=== PATIENT | female | born 1940 | race Caucasian/White ===

== ENCOUNTER 2017-06-10 11:55 | Observation (INO) | payer OTHER ==
[2017-06-10 11:57] VITALS: BP 209/96; PULSE 57; RESP 16; TEMP 98; O2SAT 95
--- NOTE | 2017-06-10 12:48 | PD ---
HPI Chief Complaint: Altered Mental Status Time Seen by Provider: 12:07 Travel History International Travel<30 days: No Contact w/Intl Traveler<30days: No Traveled to known affect area: No History of Present Illness HPI 76-year-old female complains of denies malaise and weakness and chest discomfort. Patient states that symptoms started 2 days ago. Patient states that the chest discomfort localized to left chest. Patient denies any pain radiation. Patient denies palpitation nausea diaphoresis. Family member states the patient has been confused and looking pale for the past 2 days. Patient was on Ativan 2 mg, 6-8 pills a day. Family members took away the Ativan is 2 days ago. Patient was given Ativan 2 mg this morning prior to arrival. Family members state that her mental status improving after that. Patient also has been taking tramadol for chronic pain. Patient has history of hypertension on lisinopril and also on 1 psychiatric medication which they do not know the name. Patient denies any alcohol use or illicit drug abuse. Patient denies any headache. Patient denies any visual change. Patient denies any coughing congestion shortness of breath. Patient denies abdominal pain. Patient denies any nausea vomiting diarrhea. Patient denies any fever chills. Family members state the patient is unable to ambulate the last 2 days. [facility] Social History Tobacco Use: No Allergies-Medications (Allergen,Severity, Reaction): Coded Allergies: No Known Allergies (Unverified , 06/10/17) Reported Meds & Prescriptions Reported Meds & Active Scripts Active Reported Escitalopram (Escitalopram Oxalate) 5 Mg Tab Unknown Dose PO DAILY Tramadol (Tramadol HCl) 50 Mg Tab Unknown Dose PO DIRECTED PRN Ativan (Lorazepam) 2 Mg Tab 2 Mg PO Q6H PRN Review of Systems General / Constitutional: No: Fever Eyes: No: Visual changes HENT: No: Headaches Cardiovascular: Positive: Chest Pain or Discomfort Respiratory: No: Shortness of Breath Gastrointestinal: No: Abdominal Pain Genitourinary: No: Dysuria Musculoskeletal: No: Pain Skin: No Rash Neurologic: No: Weakness Psychiatric: No: Depression Endocrine: No: Polydipsia Hematologic/Lymphatic: No: Easy Bruising Physical Exam Narrative GENERAL: Well-nourished, well-developed patient. SKIN: Focused skin assessment warm/dry. HEAD: Normocephalic. EYES: No scleral icterus. No injection or drainage. NECK: Supple, trachea midline. No JVD or lymphadenopathy. CARDIOVASCULAR: Regular rate and rhythm without murmurs, gallops, or rubs. RESPIRATORY: Breath sounds equal bilaterally. No accessory muscle use. GASTROINTESTINAL: Abdomen soft, non-tender, nondistended. MUSCULOSKELETAL: No cyanosis, or edema. BACK: Nontender without obvious deformity. No CVA tenderness. Neurologic exam: Patient is lethargic however answer questions appropriately. Patient moves all extremity well. No obvious focal neurological deficit. Patient however was a generalized weakness. Data Data Last Documented VS Vital Signs Date Time Temp Pulse Resp B/P (MAP) Pulse Ox O2 Delivery O2 Flow Rate FiO2 06/10/17 16:18 63 18 139/71 (93) 95 Room Air 06/10/17 11:57 98.0 Orders Orders Electrocardiogram (06/10/17 12:29) Complete Blood Count With Diff (06/10/17 12:29) Comprehensive Metabolic Panel (06/10/17 12:29) Creatine Kinase (Cpk) (06/10/17 12:29) Troponin I (06/10/17 12:29) B-Type Natriuretic Peptide (06/10/17 12:29) Prothrombin Time / Inr (Pt) (06/10/17 12:29) Act Partial Throm Time (Ptt) (06/10/17 12:29) Urinalysis - C+S If Indicated (06/10/17 12:29) Thyroid Stimulating Hormone (06/10/17 12:29) Chest, Single Ap (06/10/17 12:29) Iv Access Insert/Monitor (06/10/17 12:29) Ecg Monitoring (06/10/17 12:29) Oximetry (06/10/17 12:29) Drug Screen, Random Urine (06/10/17 12:49) Alcohol (Ethanol) (06/10/17 12:49) Salicylates (Aspirin) (06/10/17 12:49) Tylenol (Acetaminophen) (06/10/17 12:49) Sodium Chlor 0.9% 1000 Ml Inj (Ns 1000 M (06/10/17 13:00) Ct Brain W/O Iv Contrast(Rout) (06/10/17 ) CKMB (06/10/17 13:05) CKMB% (06/10/17 13:05) (Hub Use Only)Inp Phy Cons/Ref (06/10/17 ) Admit Order (Ed Use Only) (06/10/17 16:12) Labs Laboratory Tests Test 06/10/17 13:05 White Blood Count 8.3 TH/MM3 Red Blood Count 4.62 MIL/MM3 Hemoglobin 15.0 GM/DL Hematocrit 43.7 % Mean Corpuscular Volume 94.4 FL Mean Corpuscular Hemoglobin 32.4 PG Mean Corpuscular Hemoglobin Concent 34.4 % Red Cell Distribution Width 15.2 % Platelet Count 326 TH/MM3 Mean Platelet Volume 8.5 FL Neutrophils (%) (Auto) 82.2 % Lymphocytes (%) (Auto) 11.4 % Monocytes (%) (Auto) 5.9 % Eosinophils (%) (Auto) 0.1 % Basophils (%) (Auto) 0.4 % Neutrophils # (Auto) 6.8 TH/MM3 Lymphocytes # (Auto) 0.9 TH/MM3 Monocytes # (Auto) 0.5 TH/MM3 Eosinophils # (Auto) 0.0 TH/MM3 Basophils # (Auto) 0.0 TH/MM3 CBC Comment DIFF FINAL Differential Comment Prothrombin Time 10.0 SEC Prothromb Time International Ratio 1.0 RATIO Activated Partial Thromboplast Time 26.1 SEC Urine Color LIGHT-YELLOW Urine Turbidity CLEAR Urine pH 7.5 Urine Specific [place] 1.007 Urine Protein NEG mg/dL Urine Glucose (UA) NEG mg/dL Urine Ketones NEG mg/dL Urine Occult Blood NEG Urine Nitrite NEG Urine Bilirubin NEG Urine Urobilinogen LESS THAN 2.0 MG/DL Urine Leukocyte Esterase NEG Urine RBC LESS THAN 1 /hpf Urine WBC 1 /hpf Urine Squamous Epithelial Cells <1 /hpf Microscopic Urinalysis Comment CULT NOT INDICATED Blood Urea Nitrogen 8 MG/DL Creatinine 0.75 MG/DL Random Glucose 122 MG/DL Total Protein 8.2 GM/DL Albumin 4.5 GM/DL Calcium Level 9.6 MG/DL Alkaline Phosphatase 68 U/L Aspartate Amino Transf (AST/SGOT) 27 U/L Alanine Aminotransferase (ALT/SGPT) 23 U/L Total Bilirubin 0.4 MG/DL Sodium Level 137 MEQ/L Potassium Level 3.7 MEQ/L Chloride Level 98 MEQ/L Carbon Dioxide Level 27.8 MEQ/L Anion Gap 11 MEQ/L Estimat Glomerular Filtration Rate 75 ML/MIN Total Creatine Kinase 293 U/L Creatine Kinase MB 5.1 NG/ML Creatine Kinase MB % 1.7 % Troponin I LESS THAN 0.02 NG/ML B-Type Natriuretic Peptide 159 PG/ML Thyroid Stimulating Hormone 3rd Gen 0.227 uIU/ML Salicylates Level 3.0 MG/DL Urine Opiates Screen NEG Acetaminophen Level LESS THAN 2.0 MCG/ML Urine Barbiturates Screen NEG Urine Amphetamines Screen NEG Urine Benzodiazepines Screen NEG Urine Cocaine Screen NEG Urine Cannabinoids Screen POS Ethyl Alcohol Level LESS THAN 3 MG/DL MDM Medical Decision Making Medical Screen Exam Complete: Yes Emergency Medical Condition: Yes Interpretation(s) Last Impressions Chest X-Ray 06/10/17 1229 Signed Impressions: Service Date/Time: Saturday, June 10, 2017 12:37 - CONCLUSION: No acute disease. Marko Mccoy MD Head CT 06/10/17 0000 Signed Impressions: Service Date/Time: Saturday, June 10, 2017 13:34 - CONCLUSION: No acute disease. Marko Mccoy MD 1524 PM. CBC within normal limits. CMP within normal limits. Cardiac enzymes are normal. BNP 159. TSH 0.227. Urine drug screen positive for cannabis. UA is negative. Differential Diagnosis Differential diagnosis including side effect of withdrawal medication, dehydration, electrolyte imbalance, TIA, CVA, UTI, pneumonia, sepsis. Narrative Course 76-year-old female with altered mental status and lethargy. Patient just came off Ativan 2 days ago. Patient is taking tramadol for pain. Normal saline solution 125 cc an hour. Diagnosis Primary Impression: Altered mental status Qualified Codes: R41.0 - Disorientation, unspecified Additional Impression: Medication withdrawal Qualified Codes: F13.239 - Sedative, hypnotic or anxiolytic dependence with withdrawal, unspecified Admitting Information Admitting Physician Requests: Observation Jose Ramon Friend MD Jun 10, 2017 12:48
[2017-06-10 13:05] VITALS: PULSE 40; RESP 18; O2SAT 98
[2017-06-10 13:18] LABS: AUTOMATED NEUTROPHIL # 6.8 TH/MM3 (1.8-7.7); BASOPHIL % 0.4 % (0.0-2.0); EOSINOPHIL % 0.1 % (0.0-4.0); HEMATOCRIT 43.7 % (35.0-46.0); LYMPH % 11.4 % (9.0-44.0); LYMPHOCYTE # 0.9 TH/MM3 (1.0-4.8); MEAN CELL VOLUME 94.4 FL (80.0-100.0); MEAN CORPUSCULAR HEMOGLOBIN 32.4 PG (27.0-34.0); MEAN CORPUSCULAR HGB CONC 34.4 % (32.0-36.0); MEAN PLATELET VOLUME 8.5 FL (7.0-11.0); MONO % 5.9 % (0.0-8.0); MONOCYTE # 0.5 TH/MM3 (0-0.9); NEUT % 82.2 % (16.0-70.0); PLATELET COUNT 326 TH/MM3 (150-450); RED BLOOD COUNT 4.62 MIL/MM3 (4.00-5.30); RED CELL DISTRIBUTION WIDTH 15.2 % (11.6-17.2); WHITE BLOOD COUNT 8.3 TH/MM3 (4.0-11.0)
--- NOTE | 2017-06-10 13:24 | RADRPT ---
EXAM DATE/TIME: 06/10/2017 12:37 [facility] COMPARISON: No previous studies available for comparison. INDICATIONS : Chest Pain MEDICAL HISTORY : Unobtainable SURGICAL HISTORY : Unobtainable ENCOUNTER: Initial ACUITY: 1 day PAIN SCORE: Non-responsive. LOCATION: chest FINDINGS: Cardiomegaly. Clear lungs. Degenerative changes of the spine and scoliosis of the lumbar spine, conve x to the right. CONCLUSION: No acute disease. Marko Mccoy MD on June 10, 2017 at 13:20 Board Certified Radiologist. This report was verified electronically.
[2017-06-10] MEDS: SODIUM CHLOR 0.9% 1000 ML INJ 1,000 ML IV SCH ×2 (13:25→23:00)
[2017-06-10 13:29] LABS: BILIRUBIN, URINE NEG (NEG); BLOOD, URINE NEG (NEG); GLUCOSE,URINE NEG (NEG); KETONE, URINE NEG (NEG); NITRITE,URINE NEG (NEG); PH, URINE 7.5 (5.0-8.5); SQUAMOUS EPITHELIAL CELL URINE <1 /hpf (0-5); URINE COLOR LIGHT-YELLOW (YELLW/STRAW); URINE LEUKOCYTE ESTERASE NEG (NEG)
[2017-06-10 13:39] LABS: ALBUMIN 4.5 GM/DL (3.4-5.0); AST (GOT) 27 U/L (15-37); BICARBONATE 27.8 MEQ/L (21.0-32.0); BLOOD UREA NITROGEN 8 MG/DL (7-18); CALCIUM 9.6 MG/DL (8.5-10.1); CHLORIDE 98 MEQ/L (98-107); CREATININE 0.75 MG/DL (0.50-1.00); GLOMERULAR FILTRATION RATE 75 ML/MIN (>89); GLUCOSE,RANDOM 122 MG/DL (74-106); SODIUM (NA) 137 MEQ/L (136-145)
[2017-06-10 13:40] LABS: ALT (GPT) 23 U/L (10-53)
--- NOTE | 2017-06-10 13:48 | RADRPT ---
EXAM DATE/TIME: 06/10/2017 13:34 [facility] COMPARISON: No previous studies available for comparison. INDICATIONS : Lethargic for 2 days, altered mental status. RADIATION DOSE: 56.35 CTDIvol (mGy) MEDICAL HISTORY : Non-responsive. SURGICAL HISTORY : Non-responsive. ENCOUNTER: Initial ACUITY: 1 day PAIN SCALE: Non-responsive LOCATION: cranial TECHNIQUE: Multiple contiguous axial images were obtained of the head. Using automated exposure control and adj ustment of the mA and/or kV according to patient size, radiation dose was kept as low as reasonably a chievable to obtain optimal diagnostic quality images. DICOM format image data is available electro nically for review and comparison. FINDINGS: CEREBRUM: The ventricles are normal for age. No evidence of midline shift, mass lesion, hemorrhage or acute in farction. No extra-axial fluid collections are seen. POSTERIOR FOSSA: The cerebellum and brainstem are intact. The 4th ventricle is midline. The cerebellopontine angle i s unremarkable. EXTRACRANIAL: The visualized portion of the orbits is intact. SKULL: The calvaria is intact. No evidence of skull fracture. CONCLUSION: No acute disease. Marko Mccoy MD on June 10, 2017 at 13:44 Board Certified Radiologist. This report was verified electronically.
[2017-06-10 13:49] LABS: ALKALINE PHOSPHATASE 68 U/L (45-117); TOTAL BILIRUBIN ADULT 0.4 MG/DL (0.2-1.0); TOTAL PROTEIN 8.2 GM/DL (6.4-8.2); TROPONIN I LESS THAN 0.02 NG/ML (0.02-0.05)
[2017-06-10 13:53] VITALS: BP 137/73; PULSE 61; RESP 18; O2SAT 96
[2017-06-10] MEDS ORDERED: TRAM50TA PO (14:05)
[2017-06-10] MEDS ORDERED: LORA-475 PO (14:05)
[2017-06-10] MEDS ORDERED: ESCI5TAB PO (14:05)
[2017-06-10 15:29] LABS: ACETAMINOPHEN LESS THAN 2.0 MCG/ML (10.0-30.0)
[2017-06-10 16:18] VITALS: BP 139/71; PULSE 63; RESP 18; O2SAT 95
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
[2017-06-10] MEDS ORDERED: MAGNESIUM HYDROXIDE SUSP 30 ML CUP PO PRN (17:30)
[2017-06-10] MEDS ORDERED: SODIUM CHLORIDE 0.9% FLUSH 10 ML FLUSH IV FLUSH PRN (17:30)
[2017-06-10] MEDS ORDERED: FLUMAZENIL 0.5 MG/5 ML VIAL IV PUSH PRN (17:30)
[2017-06-10] MEDS ORDERED: LORazepam 2 MG TAB PO PRN (17:30)
[2017-06-10] MEDS ORDERED: NALOXONE HCL 0.4 MG/ML AMP IV PUSH PRN (17:30)
[2017-06-10] MEDS ORDERED: ACETAMINOPHEN 325 MG TAB PO PRN (17:30)
[2017-06-10] MEDS ORDERED: SENNOSIDES 8.6 MG TAB PO PRN (17:30)
[2017-06-10] MEDS ORDERED: LORazepam 2 MG/ML VIAL IV PUSH PRN ×3 (17:30)
[2017-06-10] MEDS ORDERED: BISACODYL 10 MG SUPP RECTAL PRN (17:30)
[2017-06-10] MEDS ORDERED: LACTULOSE SYRUP 20 GM/30 ML CUP PO PRN (17:30)
[2017-06-10] MEDS ORDERED: PILL SPLITTER OTHER PRN (18:15)
[2017-06-10] MEDS: SODIUM CHLORIDE 0.9% FLUSH 10 ML FLUSH IV FLUSH SCH (20:29)
[2017-06-10] MEDS: DOCUSATE SODIUM 50 MG/SENNA 8.6 MG TAB PO SCH (20:29)
[2017-06-10] MEDS: LORazepam 1 MG TAB PO PRN (20:32)
[2017-06-10] MEDS: ENOXAPARIN SODIUM 30 MG/0.3 ML SYRINGE SQ SCH (20:33)
[2017-06-10] MEDS: traMADol HCL 50 MG TAB PO PRN ×2 (20:47→22:00)
[2017-06-11] VITALS (7 sets, daily range): BP systolic 116–217; BP diastolic 70–99; PULSE 64–72; RESP 16–20; TEMP 97.8–98.3; O2SAT 93–97
[2017-06-11 00:36] LABS: FREE T3 2.63 PG/ML (2.18-3.98); FREE T4 1.08 NG/DL (0.76-1.46); TROPONIN I LESS THAN 0.02 NG/ML (0.02-0.05)
[2017-06-11] MEDS: LORazepam 1 MG TAB PO PRN ×2 (01:30→05:56)
[2017-06-11] MEDS ORDERED: cloNIDine HCL 0.1 MG TAB PO SCH (06:30)
[2017-06-11] MEDS: SODIUM CHLOR 0.9% 1000 ML INJ 1,000 ML IV SCH ×2 (09:00→19:06)
[2017-06-11] MEDS: DOCUSATE SODIUM 50 MG/SENNA 8.6 MG TAB PO SCH ×2 (09:00→21:06)
[2017-06-11] MEDS: SODIUM CHLORIDE 0.9% FLUSH 10 ML FLUSH IV FLUSH SCH ×2 (09:40→19:05)
[2017-06-11] MEDS: ESCITALOPRAM OXALATE 10 MG TAB PO SCH (09:40)
[2017-06-11] MEDS ORDERED: MULTIVITAMINS/MINERALS THERAPEUTIC TAB PO ONE (14:45)
[2017-06-11] MEDS ORDERED: cloNIDine HCL 0.1 MG TAB PO PRN (14:45)
--- NOTE | 2017-06-11 14:52 | HHI.PR ---
Subjective Remarks Follow up on patient with benzodiazepine withdrawal. Patient seen and examined. Patient has family members present at the bedside. Apparently, however patient was supplementing with her own Ativan that she was purchasing illegally. Patient has an extremely lengthy history of benzodiazepine use starting in her 20s. Patient tells me today that she has had some thoughts of suicide but she knows that it is not what God would want her to do. She does not have a plan. She denies taking excessive amount of benzodiazepines in an effort to kill herself. She is asking to see a clinical support specialist. She recently had her granddaughter and grandson move in with her for companionship at her request. She has 2 adopted children, a son who committed suicide about 9 years ago and a daughter who she is estranged from. Her second whom she was to for 6 years last year and she has recently found out that he has spent a great deal of her fpc money and she may not have enough money left to live. Additionally, she is in probate court with her husbands children. Family members also add that she takes tramadol all throughout the day as well as large amounts of Tylenol PM in an effort to get some sleep. Apparently, her urine drug she was positive for cannabis because her granddaughter gave her some marijuana pills to take for relaxation while she was trying to wean down off of the Ativan. Patient admits that she has been under a great deal of stress. She has lost weight and is not eating well. She is not able to sleep. Family's concern is patient has been getting progressively weaker and spending more time in bed. Objective Vitals Vital Signs Date Time Temp Pulse Resp B/P (MAP) Pulse Ox O2 Delivery O2 Flow Rate FiO2 06/11/17 12:47 98.3 71 18 139/81 (100) 96 06/11/17 09:07 98.2 72 16 120/70 (87) 96 06/11/17 07:26 175/79 (111) 06/11/17 05:49 64 18 217/99 (138) 96 06/11/17 01:27 98.2 69 18 116/73 (87) 95 06/10/17 16:18 63 18 139/71 (93) 95 Room Air I/O 06/10/17 06/10/17 06/10/17 06/11/17 06/11/17 06/11/17 07:00 15:00 23:00 07:00 15:00 23:00 Intake Total 220 ml Balance 220 ml Intake TPN/PPN 220 ml # Voids 1 1 Result Diagram: 06/10/17 1305 06/10/17 1305 Imaging Last Impressions Chest X-Ray 06/10/17 1229 Signed Impressions: Service Date/Time: Saturday, June 10, 2017 12:37 - CONCLUSION: No acute disease. Marko Mccoy MD Head CT 06/10/17 0000 Signed Impressions: Service Date/Time: Saturday, June 10, 2017 13:34 - CONCLUSION: No acute disease. Marko Mccoy MD Objective Remarks GENERAL: Thin, frail cachectic appearing female patient, INAD. Awake and alert. Family members at the bedside. HEAD: Atraumatic. Normocephalic. + Temporal wasting EYES: PERRL, full EOMs, no jaundice, nonicteric, pink conjunctivae ENT: Nose without bleeding, purulent drainage. Airway patent. MMM. NECK: Trachea midline CARDIOVASCULAR: Regular rate and rhythm without murmurs, gallops, or rubs. Positive tenderness, reproducible on palpation of the left inframammary area. RESPIRATORY: Nonlabored. Clear to auscultation with normal respiratory effort. Breath sounds equal bilaterally. GASTROINTESTINAL: Abdomen soft, normal bowel sounds, non-tender, nondistended. MUSCULOSKELETAL: Extremities without clubbing, cyanosis, or edema. Distal pulses intact, 2+ bilaterally. INTEGUMENTARY: Warm and dry, no rash of generalized distribution. NEUROLOGICAL: Awake, alert, oriented to self, place, month and year no obvious cranial nerve deficits. Moves all 4 extremities, muscle strength testing 5 over 5. Motor and sensory grossly within normal limits. Supple neck, no meningeal signs. No obvious tremors. PSYCHIATRIC: Depressed mood, flat affect. Judgment and insight questionable. Procedures None Medications and IVs Current Medications Medications (Trade) Dose Ordered Sig/Castillo Route Start Time Stop Time Status Last Admin Sodium Chloride 1,000 ml @ 100 mls/hr Q10H IV 06/10/17 13:00 06/10/17 13:25 (NS Flush) 2 ml UNSCH PRN IV FLUSH 06/10/17 17:30 (NS Flush) 2 ml BID IV FLUSH 06/10/17 21:00 06/11/17 09:40 (Tylenol) 650 mg Q4H PRN PO 06/10/17 17:30 (Lovenox Inj) 30 mg Q24H SQ 06/10/17 20:00 06/10/17 20:33 (Narcan Inj) 0.4 mg UNSCH PRN IV PUSH 06/10/17 17:30 (Janine-Colace) 1 tab BID PO 06/10/17 21:00 (Milk Of Magnesia Liq) 30 ml Q12H PRN PO 06/10/17 17:30 (Senokot) 17.2 mg Q12H PRN PO 06/10/17 17:30 (Dulcolax Supp) 10 mg DAILY PRN RECTAL 06/10/17 17:30 (Lactulose Liq) 30 ml DAILY PRN PO 06/10/17 17:30 (Lexapro) 5 mg DAILY PO 06/11/17 09:00 06/11/17 09:40 (Ultram) 50 mg Q8H PRN PO 06/10/17 17:30 06/10/17 22:00 (Romazicon Inj) 0.2 mg Q1M PRN IV PUSH 06/10/17 17:30 (Ativan) 1 mg Q4H PRN PO 06/10/17 17:30 06/11/17 05:56 (Ativan Inj) 1 mg Q4H PRN IV PUSH 06/10/17 17:30 (Ativan) 2 mg Q2H PRN PO 06/10/17 17:30 (Ativan Inj) 2 mg Q1H PRN IV PUSH 06/10/17 17:30 (Ativan Inj) 2 mg Q15M PRN IV PUSH 06/10/17 17:30 (Pill Splitter) 1 ea UNSCH PRN OTHER 06/10/17 18:15 A/P Assessment and Plan 76-year-old female was brought in by her family members because of altered mental status likely secondary to benzodiazepine withdrawal. Benzodiazepine withdrawal: Patient has been on benzodiazepines since her 20s. Admits to abuse of medication, obtaining benzodiazepines illegally and taking more of her prescribed Ativan, running out early UDS positive for cannabis, interestingly negative for benzodiazepines Discussed with patient and family why cannabis is a poor substitute for benzodiazepines, advised on cessation -Ativan 1mg po BID with plans to wean patient down -CIWA protocol -monitor for seizure activity -monitor on cardiac telemetry -neuro checks Suicidal thoughts: Patient admits that she has had several episodes of injuring herself but has not done so due to her quaker beliefs. She denies taking additional visit as a pains in an effort to hurt herself. She does not have a plan at this time. Depression Polysubstance abuse: Patient admits to taking excessive amounts of benzodiazepines, tramadol and Tylenol PM. Salicylate level WNL. -Consult Industrial Maintenance Repairer Helper at patients request. She is a very quaker person and her beliefs have kept her from harming herself. -Consult Psychiatry, appreciate assistance. -Continue on Lexapro Chest pain: chronic, patient states he has had for years following fall that resulted in multiple rib fractures Doubt ACS CXR shows no acute disease, images reviewed by me Troponins negative x 3 -monitor Elevated CK, mild -Continue to trend CK -IVF Hypertension, uncontrolled, suspect secondary to withdrawal BP 217/99 BP controlled now off of any antihypertensives -Patients family to bring in her lisinopril prescription to clarify dosing -Clonidine as needed with parameters -Continue to monitor BP and adjust treatment accordingly Poor po intake Malnutrition Physical deconditioning -Theragran-M multivitamin daily -Obtain vitamin D level -Consult dietitian -PT/OT eval/tx Hypokalemia Hypophosphatemia -po repletion ordered Chronic pain -continue on Tramadol prn DVT prophylaxis -Lovenox Discharge Planning Patient not ready for discharge. Discharge pending clinical improvement, psychiatry clearance. Alyssa Siddiqui Jun 11, 2017 14:52
[2017-06-11] MEDS ORDERED: LORazepam 1 MG TAB PO SCH (15:00)
[2017-06-11 15:15] LABS: BICARBONATE 26.9 MEQ/L (21.0-32.0); CREATININE 0.71 MG/DL (0.50-1.00)
[2017-06-11 16:16] LABS: MAGNESIUM 1.7 MG/DL (1.5-2.5); PHOSPHORUS 2.1 MG/DL (2.5-4.9)
[2017-06-11] MEDS ORDERED: POTASSIUM CHLORIDE 25 MEQ EFFERVESCENT TAB PO ONE (17:00)
[2017-06-11] MEDS ORDERED: MELATONIN 5 MG TAB PO PRN (17:45)
[2017-06-11] MEDS: ENOXAPARIN SODIUM 30 MG/0.3 ML SYRINGE SQ SCH (19:07)
--- NOTE | 2017-06-11 20:56 | EKG ---
Date Performed: 06/11/2017 Time Performed: 02:40:41 PTAGE: 76 years EKG: Sinus rhythm WITH MARKED SINUS ARRHYTHMIA POSSIBLE LEFT ATRIAL ENLARGEMENT BORDERLINE ECG PREVIOUS TRACING : 06/10/2017 18.09 Since the previous tracing, no significant change noted DOCTOR: Octavio Hidalgo Interpretating Date/Time 06/11/2017 20:56:18
[2017-06-11] MEDS: LORazepam 1 MG TAB PO SCH (21:06)
[2017-06-11] MEDS: traMADol HCL 50 MG TAB PO PRN (21:07)
[2017-06-11] MEDS: POTASSIUM PHOSPHATE/SODIUM PHOSPHATE 250 MG TAB PO SCH (21:08)
--- NOTE | 2017-06-11 21:14 | EKG ---
Date Performed: 06/10/2017 Time Performed: 18:09:05 PTAGE: 76 years EKG: Sinus rhythm WITH SINUS ARRHYTHMIA POSSIBLE LEFT ATRIAL ENLARGEMENT SEPTAL MYOCARDIAL INFARCTION ABNORMAL ECG PREVIOUS TRACING : 06/10/2017 12.59 Since the previous tracing, no significant change noted DOCTOR: Octavio Hidalgo Interpretating Date/Time 06/11/2017 21:12:47
--- NOTE | 2017-06-11 21:27 | EKG ---
Date Performed: 06/10/2017 Time Performed: 12:59:12 PTAGE: 76 years EKG: Sinus rhythm LEFT ATRIAL ENLARGEMENT SEPTAL MYOCARDIAL INFARCTION ABNORMAL ECG NO PREVIOUS TRACING DOCTOR: Octavio Hidalgo Interpretating Date/Time 06/11/2017 21:26:31
[2017-06-12 03:43] VITALS: BP 138/86; PULSE 61; RESP 18; TEMP 98.1; O2SAT 95
[2017-06-12] MEDS: POTASSIUM PHOSPHATE/SODIUM PHOSPHATE 250 MG TAB PO SCH (05:16)
[2017-06-12] MEDS: SODIUM CHLOR 0.9% 1000 ML INJ 1,000 ML IV SCH (05:17)
[2017-06-12] MEDS: traMADol HCL 50 MG TAB PO PRN (05:50)
[2017-06-12 07:03] VITALS: BP 127/85; PULSE 68; RESP 16; TEMP 98.2; O2SAT 95
[2017-06-12 07:45] LABS: BICARBONATE 25.1 MEQ/L (21.0-32.0); CALCIUM 8.4 MG/DL (8.5-10.1); CREATININE 0.58 MG/DL (0.50-1.00)
[2017-06-12] MEDS: ESCITALOPRAM OXALATE 10 MG TAB PO SCH (08:20)
[2017-06-12] MEDS: LORazepam 1 MG TAB PO SCH (08:21)
[2017-06-12] MEDS: SODIUM CHLORIDE 0.9% FLUSH 10 ML FLUSH IV FLUSH SCH (08:21)
[2017-06-12] MEDS ORDERED: MULTIVITAMINS/MINERALS THERAPEUTIC TAB PO SCH (09:00)
[2017-06-12] MEDS: DOCUSATE SODIUM 50 MG/SENNA 8.6 MG TAB PO SCH (09:00)
--- NOTE | 2017-06-12 09:26 | HHI.PR ---
Subjective Remarks Follow up for benzodiazepine withdrawal. Patient is resting in bed. She denies any chest pain, shortness of breath, fever or chills. She keeps mentioning about how she needs to be re-born and she also talks about . Patient has a long history of benzo abuse. Objective Vitals Vital Signs Date Time Temp Pulse Resp B/P (MAP) Pulse Ox O2 Delivery O2 Flow Rate FiO2 06/12/17 07:13 18 06/12/17 07:03 98.2 68 16 127/85 (99) 95 06/12/17 03:43 98.1 61 18 138/86 (103) 95 06/11/17 19:35 97.8 66 18 131/82 (98) 93 06/11/17 15:22 97.8 71 20 140/81 (100) 97 06/11/17 12:47 98.3 71 18 139/81 (100) 96 I/O 06/11/17 06/11/17 06/11/17 06/12/17 06/12/17 06/12/17 07:00 15:00 23:00 07:00 15:00 23:00 Intake Total 220 ml 240 ml 120 ml Balance 220 ml 240 ml 120 ml Intake TPN/PPN 220 ml 240 ml 120 ml Result Diagram: 06/10/17 1305 06/12/17 0530 Imaging Last Impressions Chest X-Ray 06/10/17 1229 Signed Impressions: Service Date/Time: Saturday, June 10, 2017 12:37 - CONCLUSION: No acute disease. Marko Mccoy MD Head CT 06/10/17 0000 Signed Impressions: Service Date/Time: Saturday, June 10, 2017 13:34 - CONCLUSION: No acute disease. Marko Mccoy MD Objective Remarks GENERAL: Alert, Oriented to person, place, month. Flat affect, talks about re- born and dying. SKIN: Warm and dry. HEAD: Normocephalic. EYES: No scleral icterus. No injection or drainage. NECK: Supple, trachea midline. No JVD or lymphadenopathy. CARDIOVASCULAR: Regular rate and rhythm without murmurs, gallops, or rubs. RESPIRATORY: Breath sounds equal bilaterally. No accessory muscle use. GASTROINTESTINAL: Abdomen soft, non-tender, nondistended. MUSCULOSKELETAL: No cyanosis, or edema. BACK: Nontender without obvious deformity. No CVA tenderness. Procedures None A/P Problem List: (1) Hypertension ICD Code: I10 - Essential (primary) hypertension (2) Suicidal behavior ICD Code: R46.89 - Other symptoms and signs involving appearance and behavior (3) Depression ICD Code: F32.9 - Major depressive disorder, single episode, unspecified (4) Benzodiazepine dependence ICD Code: F13.20 - Sedative, hypnotic or anxiolytic dependence, uncomplicated Assessment and Plan 76-year-old female was brought in by her family members because of altered mental status likely secondary to benzodiazepine withdrawal. Benzodiazepine withdrawal: Patient has been on benzodiazepines since her 20s. Admits to abuse of medication, obtaining benzodiazepines illegally and taking more of her prescribed Ativan, running out early UDS positive for cannabis, interestingly negative for benzodiazepines -Ativan 1mg po BID with plans to wean patient down -CIWA protocol -monitor for seizure activity -neuro checks Suicidal thoughts Depression -Patient admits that she has had several episodes of injuring herself but has not done so due to her tenriism beliefs. Polysubstance abuse -Patient admits to taking excessive amounts of benzodiazepines, tramadol and Tylenol PM. Salicylate level within normal levels. -Consult Starter Mechanic at patients request. She is a very tenriism person and her beliefs have kept her from harming herself. -Consult Psychiatry. -Continue on Lexapro Chest pain: chronic, patient states he has had for years following fall that resulted in multiple rib fractures CXR shows no acute disease, images reviewed by me Troponins negative x 3. - No further cardiac work up. Elevated CK, mild. Creatinine 0.58. No further work up with regards to elevated CK. Hypertension, uncontrolled, suspect secondary to withdrawal - BP Much improved. 127/85 on 06/12/2017. Malnutrition Physical deconditioning -Theragran-M multivitamin daily -Obtain vitamin D level -Consult dietitian -PT/OT eval/tx Hypokalemia Hypophosphatemia Hypomagnesemia -PO Potassium phosphate replacement. - Will provide 2 g of Mag sulfate IV. Mg was 1.7. Chronic pain -continue on Tramadol prn Full code. Lovenox. Isauro Mock DO June 12, 2017 9:26 am
[2017-06-12 10:36] VITALS: BP 129/83; PULSE 69; RESP 20; TEMP 98.7; O2SAT 92
[2017-06-12] MEDS: MAGNESIUM SULFATE 1 GM PREMIX 100 ML IV SCH ×2 (11:05→12:01)
[2017-06-13] MEDS ORDERED: LORA0.5T PO (19:55)
[2017-06-13] MEDS ORDERED: TRAZ100T10 PO (20:00)
[2017-06-13] MEDS ORDERED: LISI-515 PO (20:00)
[2017-06-13] MEDS ORDERED: ESCI10TA PO (20:01)
== END 2017-06-12 13:13 ==
LOC: NEPC 11:55 → NEDA 16:18 → NEPFCDU 19:02
PROVIDERS: ADMIT Hospitalist; ATTEND Hospitalist
DX: R41.82 Altered mental status, unspecified (principal); F13.239 Sedative, hypnotic or anxiolytic dependence with withdrawal, unspecified; R45.851 Suicidal ideations; E46 Unspecified protein-calorie malnutrition; E87.6 Hypokalemia; E83.39 Other disorders of phosphorus metabolism; E83.42 Hypomagnesemia; I49.9 Cardiac arrhythmia, unspecified; R94.31 Abnormal electrocardiogram [ECG] [EKG]; I11.9 Hypertensive heart disease without heart failure; G89.29 Other chronic pain; F32.9 Major depressive disorder, single episode, unspecified; F41.9 Anxiety disorder, unspecified; F17.210 Nicotine dependence, cigarettes, uncomplicated; M19.90 Unspecified osteoarthritis, unspecified site
CPT/HCPCS: 70450; 71045; 80048; 80053; 80307; 81001; 82306; 82550; 82552; 82607; 83735; 83880; 84100; 84439; 84443; 84481; 84484; 85025; 85610; 85730; 93005; 96361; 96365; 96372; 97162; 97167; 99285; G0378; G8987; G8988; J1650; J3475; J7030

== ENCOUNTER 2017-06-12 11:14 | Inpatient (IN) | payer OTHER, MEDICARE ==
[~2017-06-12 11:14] MED LIST: ESCI5TAB PO; LORA-475 PO; TRAM50TA PO
[2017-06-12] MEDS ORDERED: FLUMAZENIL 0.5 MG/5 ML VIAL IV PUSH PRN (12:00)
[2017-06-12] MEDS ORDERED: LORazepam 2 MG TAB PO PRN ×2 (12:00→15:15)
[2017-06-12] MEDS ORDERED: LORazepam 0.5 MG TAB PO PRN (12:00)
[2017-06-12] MEDS ORDERED: LORazepam 2 MG/ML VIAL IM PRN ×2 (12:00)
[2017-06-12] MEDS ORDERED: LORazepam 2 MG/ML VIAL IV PUSH PRN ×4 (12:00)
[2017-06-12] MEDS ORDERED: ALUMINUM/MAGNESIUM/SIMETH 30 ML CUP PO PRN (12:00)
[2017-06-12] MEDS ORDERED: LORazepam 1 MG TAB PO PRN (12:00)
[2017-06-12] MEDS ORDERED: MAGNESIUM HYDROXIDE SUSP 30 ML CUP PO PRN (12:00)
--- NOTE | 2017-06-12 12:31 | HHI.HP ---
Provisional Diagnosis Admission Date [place] I. 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 Deferred Certification of Person's Competence To Provide Express and Informed Consent I have personally examined Bailey Montesinos , a person being served at [facility] on, June 12, 2017 12:01. Express and informed consent means consent voluntarily given in writing, by a competent person, after sufficient explanation and disclosure of the subject matter involved to enable the person to make a knowing and willful decision without any element of force, fraud, deceit, duress, or other form of constraint or coercion. This person is 18 years of age or older, is not now known to be incompetent to consent to treatment with a guardian advocate, and does not have a health care surrogate or proxy currently making medical treatment decisions. I have found this person to be one of the following: [] Competent to provide express and informed consent, as defined above, for voluntary admission to this facility and is competent to provide express and informed consent for treatment. He/she has the consistent capacity to make well reasoned, willful, and knowing decisions concerning his or her medical or mental health treatment. The person fully and consistently understands the purpose of the admission for examination/placement and is fully capable of personally exercising all rights assured [place] [x] Incompetent to provide express and informed consent to voluntary admission, and this is incompetent to provide express and informed consent to treatment. The person must be transferred to involuntary status and a petition for a guardian advocate filed with the Circuit Court. [] Refusing to provide express and informed consent to voluntary admission but is competent to provide express and informed consent for treatment. The person must be discharged or transferred to involuntary status. Form shall be completed within 24 hours of a person's arrival at the receiving facility and filed in the clinical record of each person: 1. Admitted on a voluntary basis 2. Permitted to provide express and informed consent to his/her own treatment 3. Allowed to transfer from involuntary to voluntary status 4. Prior to permitting a person to consent to his or her own treatment after having been previously found incompetent to consent to treatment. History of Present Illness Capacity: Lacks Capacity HPI The patient 76-year-old woman, domiciled with granddaughter jeanne Burrows , , unemployed, supported by [employer] benefits, with psychiatric history of anxiety and depression, she denies previous psychiatric hospitalizations, denies previous suicidal attempts, medical history of arthritis presenting to the hospital after the family brought her because of Ativan withdrawal. Of note , patient has been on Ativan for 20 years, for the last few months, she has been taking Ativan 2 mg about 6-8 times a day. Her primary care physician tried to wean her off the Ativan but it was challenging. Because of increasing lethargy, family decided to help her with weaning her off from Ativan about 2 days ago. Her last usual dose of Ativan was 2 days ago, patient has been well until yesterday when she started having hallucinations, did not make any sense, nauseated, diaphoretic and anxious. Because of these symptoms, the family was alarmed and this morning, they gave her one 2 mg tablet and brought her to the hospital. Her mental status improved after getting a 2 mg Ativan but the family is concerned that she will withdrawal and she does not have any more medications. The patient's granddaughter and the patient would like to wean her off to the lowest dose possible. She is also on tramadol for chronic pain and lisinopril for hypertension. Presently, she denies any shortness of breath but she admits to being anxious. Psychiatric evaluation the patient is quietly confused, with some moments of lucidity, but mostly disorganized, disoriented. The patient reports good mood, she said that she has been missing her who several years ago, minutes later she reports that her was just here visiting her. The patient self-report to be very confused "do not believe anything I say, I do know what is going on with me". Patient thinks "I am in my apartment". She states we are in [birth year], 2009. The patient has a prominent confusion, blocking thought, speech delay and internal preoccupation. She has been endorsing visual hallucinations, she has been seeing people inside her room, talking to noexistent people. No agitation or aggressive behavior present. As per nurse in charge a primary doctor in the ER, the patient also has been stating in different locations that she wants to , but a my evaluation she denies this. Review of Systems Constitutional: DENIES: Diaphoretic episodes, Fatigue, Fever, Weight gain, Weight loss, Chills, Dizziness, Change in appetite, Night Sweats Eyes: DENIES: Blurred vision, Diplopia, Eye inflammation, Eye pain, Vision loss , Photosensitivity, Double Vision Ears, nose, mouth, throat: DENIES: Tinnitus, Hearing loss, Vertigo, Nasal discharge, Oral lesions, Throat pain, Hoarseness, Ear Pain, Running Nose, Epistaxis, Sinus Pain, Toothache, Odynophagia Respiratory: DENIES: Apneas, Cough, Snoring, Wheezing, Hemoptysis, Sputum production, Shortness of breath Cardiovascular: DENIES: Chest pain, Palpitations, Syncope, Dyspnea on Exertion , PND, Lower Extremity Edema, Orthopnea, Claudication Gastrointestinal: DENIES: Abdominal pain, Black stools, Bloody stools, Constipation, Diarrhea, Nausea, Vomiting, Difficulty Swallowing, Anorexia Genitourinary: DENIES: Abnormal vaginal bleeding, Dysmenorrhea, Dyspareunia, Sexual dysfunction, Urinary frequency, Urinary incontinence, Urgency, Hematuria , Dysuria, Nocturia, Vaginal discharge Integumentary: DENIES: Abnormal pigmentation, Pruritus, Rash, Nail changes, Breast masses, Breast skin changes, Nipple discharge Hematologic/lymphatic: DENIES: Bruising, Lymphadenopathy Immunologic/allergic: DENIES: Eczema, Urticaria Neurologic: DENIES: Abnormal gait, Headache, Localized weakness, Paresthesias, Seizures, Speech Problems, Tremor, Poor Balance Psychiatric: COMPLAINS OF: Anxiety, Hallucinations, Delusions, DENIES: Confusion, Mood changes, Depression, Agitation, Suicidal Ideation, Homicidal Ideation Past Family Social History Coded Allergies: No Known Allergies (Unverified , 06/10/17) Reported Medications Escitalopram (Escitalopram) 5 Mg Tab, PO DAILY, TAB 0 Refills 06/10/17 Tramadol (Tramadol) 50 Mg Tab, PO DIRECTED Y for PAIN, TAB 0 Refills 06/10/17 Lorazepam (Ativan) 2 Mg Tab, 2 MG PO Q6H Y for ANXIETY AND/OR AGITATION, TAB 0 Refills 06/10/17 Current Medications Medications (Trade) Dose Ordered Sig/Castillo Route Start Time Stop Time Status Last Admin (Ativan) 1 mg Q6H PRN PO 06/12/17 12:00 UNV (Ativan Inj) 1 mg Q6H PRN IM 06/12/17 12:00 UNV (Ativan) 0.5 mg Q12H PRN PO 06/12/17 12:00 UNV (Ativan Inj) 0.5 mg Q12H PRN IM 06/12/17 12:00 UNV (Tylenol) 650 mg Q4H PRN PO 06/12/17 12:00 UNV (Milk Of Magnesia Liq) 30 ml DAILY PRN PO 06/12/17 12:00 UNV (Mag-Al Plus Susp Liq) 30 ml Q6H PRN PO 06/12/17 12:00 UNV (Habitrol 21 Mg Patch.24 Hr) 1 patch DAILY T-DERMAL 06/12/17 12:00 UNV (Romazicon Inj) 0.2 mg Q1M PRN IV PUSH 06/12/17 12:00 UNV (Ativan) 1 mg Q4H PRN PO 06/12/17 12:00 UNV (Ativan Inj) 1 mg Q4H PRN IV PUSH 06/12/17 12:00 UNV (Ativan) 2 mg Q2H PRN PO 06/12/17 12:00 UNV (Ativan Inj) 2 mg Q2H PRN IV PUSH 06/12/17 12:00 UNV (Ativan Inj) 2 mg Q1H PRN IV PUSH 06/12/17 12:00 UNV (Ativan Inj) 2 mg Q15M PRN IV PUSH 06/12/17 12:00 UNV Mental Status Examination Appearance: Appropriate Consciousness: Alert Orientation: Person Motor Activity: Normal gait Speech: Unremarkable Language: Adequate Fund of Knowledge: Adequate Attention and Concentration: Adequate Memory: Unremarkable, Impaired Mood: Appropriate Affect: Appropriate Thought Process & Associations: Loose associations Thought Content: Bizarre thinking Hallucination Type: None, Visual Delusion Type: None Suicidal Ideation: Yes Suicidal Plan: No Suicidal Intention: No Homicidal Ideation: No Homicidal Plan: No Homicidal Intention: No Insight: Poor Judgment: Poor Assessment & Plan Problem List: (1) Unspecified psychosis ICD Codes: F29 - Unspecified psychosis not due to a substance or known physiological condition Assessment & Plan: On psychiatric evaluation the patient seems to be quite confused, disorganized, with active visual hallucination which is most probably secondary to persistent psychosis related with benzodiazepine withdrawal. Patient has also expressed suicidal ideation in the context of confusion, but no intentions or plan. At this moment we do not have sufficient information about past psychiatric history of the patient, no collateral information is available at the moment. Patient is on the Bills act due to psychosis and suicidal ideation, now medically clear. Will admit in the [facility] unit for stabilization and safety. Will consult psychiatry for second opinion, medicine to continue investigating potential causes of confusion, also will consult neuro to rule out neurological causes of AMS. We will start a low dose of Seroquel, 12.5 mg twice daily. Will continue CIWA. Assessment & Plan Estimated LOS: days Minor Recinos MD June 12, 2017 12:31
[2017-06-12] MEDS: NICOTINE 21 MG/24 HR PATCH T-DERMAL SCH (14:00)
--- NOTE | 2017-06-12 14:34 | PD.CONS ---
History of Present Illness Service Neurology Consult Requested By psychiatry Reason for Consult hallucinations Primary Care Physician Unknown History of Present Illness 76 y/o female with hx of HTN and anxiety, admitted for new onset of hallucinations. Pt is unable to give history, history obtained from nurse and the chart. Reports she has been on Ativan since age 19 for anxiety and depression. She had been on Ativan 2mg and over the past few months had increased it to 6-8 times daily. She was working to wean off the Ativan with her PCP due to her overuse. Her last dose of Ativan had been 2 days ago. She began having hallucinations and increased confusion and anxiety yesterday and family gave her 1 dose of the medication at that time. When asked why she is here the pt states that "she has some fear but is a Mandaeism." Denies past hx of CVA, TIA, cardiovascular problems. (Kim Avila) Review of Systems Constitutional: Negative except HPI Eye: Negative Except HPI ENMT: Negative except HPI Respiratory: Negative except HPI Cardiovascular: Negative except HPI Gastrointestinal: Negative except HPI Nikolas/Lymph: Negative except HPI Musculoskeletal: Negative except HPI Neurologic: Confusion Psychiatric: Anxiety, Depression, Hallucinations All other ROS: ROS reviewed as documented in chart (Kim Avila) Past Family Social History Allergies: Coded Allergies: No Known Allergies (Unverified , 06/10/17) Past Medical History anxiety, depression, HTN Past Surgical History hysterectomy, plastic surgery Active Ordered Medications Current Medications Medications (Trade) Dose Ordered Sig/Castillo Route Start Time Stop Time Status Last Admin (Ativan) 0.5 mg Q12H PRN PO 06/12/17 12:00 (Ativan Inj) 0.5 mg Q12H PRN IM 06/12/17 12:00 (Tylenol) 650 mg Q4H PRN PO 06/12/17 12:00 (Milk Of Magnesia Liq) 30 ml DAILY PRN PO 06/12/17 12:00 (Mag-Al Plus Susp Liq) 30 ml Q6H PRN PO 06/12/17 12:00 (Habitrol 21 Mg Patch.24 Hr) 1 patch DAILY T-DERMAL 06/12/17 14:00 (Romazicon Inj) 0.2 mg Q1M PRN IV PUSH 06/12/17 12:00 (Ativan) 1 mg Q4H PRN PO 06/12/17 12:00 (Ativan Inj) 1 mg Q4H PRN IV PUSH 06/12/17 12:00 (Ativan) 2 mg Q2H PRN PO 06/12/17 12:00 (Ativan Inj) 2 mg Q2H PRN IV PUSH 06/12/17 12:00 (Ativan Inj) 2 mg Q1H PRN IV PUSH 06/12/17 12:00 (Ativan Inj) 2 mg Q15M PRN IV PUSH 06/12/17 12:00 Family History reports granddaughter had problems with substance abuse Social History alcohol use, marijuana use (Kim Avila) Exam General: No acute distress Eye: PERRL, EOMI Respiratory: Non-labored respirations Cardiology: Normal rate Psychiatric: Cooperative Exam Comments knows it is June but thinks year 2016, knows Toi is president, unsure why she is in the hospital. follows commands, moving extremities against gravity, reflexes 2+, f-n-f intact, no facial droop, no drift, tone normal, gait withheld , no tremor, eomi no nystagmus, no focal deficits (Kim Avila) Review/Management Diagnosis/Plan: (1) Altered mental status ICD Codes: R41.82 - Altered mental status, unspecified Status: Acute Plan: suspect encephalopathy- has metabolic abnormality vs benzo withdrawl electrolytes low- sodium, potassium, phos, chloride electrolyte replacement CT NAICP EEG ordered TSH low, T3, T4 wnl B12- 313, will check Folate would rec B12 1000mcg daily UA normal (2) Hypertension ICD Codes: I10 - Essential (primary) hypertension Plan: continue Lisinopril (3) Unspecified psychosis ICD Codes: F29 - Unspecified psychosis not due to a substance or known physiological condition Status: Acute (4) Depression ICD Codes: F32.9 - Major depressive disorder, single episode, unspecified Status: Chronic Plan: continue to work closely with psychiatry (Kim Avila) Diagnosis/Plan: (1) Altered mental status ICD Codes: R41.82 - Altered mental status, unspecified Status: Acute Plan: suspect encephalopathy- has metabolic abnormality vs benzo withdrawl electrolytes low- sodium, potassium, phos, chloride electrolyte replacement CT NAICP EEG ordered mri ordered TSH low, T3, T4 wnl B12- 313, will check Folate would rec B12 1000mcg daily UA normal d/w PA. seen and examined. agree with above. pt tells me she is in the psych [facility] because "she is afraid of dying and is depressed". denies any saucedo, focal weakness, vision loss. no fever. no elevation in wbc count. na normal on arrival , now low. defer to psych/medical for further eval. there is also concern for benzo withdrawal. she was calm and appropriate in her exam with me. current behavior/condition appears to be of primary psychiatric etiology. (Paul Rogers MD) Kim Avila June 12, 2017 14:34 Paul Rogers MD June 12, 2017 17:17
[2017-06-12] MEDS: LORazepam 1 MG TAB PO PRN (17:16)
[2017-06-12 18:01] VITALS: BP 148/91; PULSE 72; RESP 16; TEMP 98; O2SAT 93
[2017-06-13 06:12] VITALS: BP 153/75; PULSE 61; RESP 16; TEMP 98.1; O2SAT 96
[2017-06-13] MEDS: NICOTINE 21 MG/24 HR PATCH T-DERMAL SCH (09:00)
--- NOTE | 2017-06-13 09:39 | HHI.PR ---
Review/Management Diagnosis/Plan: (1) Altered mental status ICD Codes: R41.82 - Altered mental status, unspecified Status: Acute Plan: primary psych d/o electrolytes low- sodium, potassium, phos, chloride electrolyte replacement recs eeg/mra pending nh3, esr nml will follow peripherally (2) Hypertension ICD Codes: I10 - Essential (primary) hypertension Plan: continue Lisinopril (3) Depression ICD Codes: F32.9 - Major depressive disorder, single episode, unspecified Status: Chronic Plan: continue to work closely with psychiatry Subjective Subjective Comments No acute events reported No headache No chest pain No dyspnea Active Medications Current Medications Medications (Trade) Dose Ordered Sig/Castillo Route Start Time Stop Time Status Last Admin (Ativan) 0.5 mg Q12H PRN PO 06/12/17 12:00 (Ativan Inj) 0.5 mg Q12H PRN IM 06/12/17 12:00 (Tylenol) 650 mg Q4H PRN PO 06/12/17 12:00 (Milk Of Magnesia Liq) 30 ml DAILY PRN PO 06/12/17 12:00 (Mag-Al Plus Susp Liq) 30 ml Q6H PRN PO 06/12/17 12:00 (Habitrol 21 Mg Patch.24 Hr) 1 patch DAILY T-DERMAL 06/12/17 14:00 (Romazicon Inj) 0.2 mg Q1M PRN IV PUSH 06/12/17 12:00 (Ativan) 1 mg Q4H PRN PO 06/12/17 12:00 06/12/17 17:16 (Ativan Inj) 1 mg Q4H PRN IV PUSH 06/12/17 12:00 (Ativan) 2 mg Q2H PRN PO 06/12/17 12:00 (Ativan Inj) 2 mg Q2H PRN IV PUSH 06/12/17 12:00 (Ativan Inj) 2 mg Q1H PRN IV PUSH 06/12/17 12:00 (Ativan Inj) 2 mg Q15M PRN IV PUSH 06/12/17 12:00 (Ativan) 2 mg Q6H PRN PO 06/12/17 15:15 (Melatonin) 5 mg HS PRN PO 06/12/17 18:15 (Ultram) 50 mg Q8H PRN PO 06/12/17 18:15 Allergies Allergies Coded Allergies No Known Allergies (Unverified06/10/17) Review of Systems Constitutional: Negative except HPI Eye: Negative Except HPI ENMT: Negative except HPI Respiratory: Negative except HPI Cardiovascular: Negative except HPI Gastrointestinal: Negative except HPI Nikolas/Lymph: Negative except HPI Musculoskeletal: Negative except HPI All other ROS: ROS reviewed as documented in chart Exam I&O / VS 06/13/17 06/13/17 06/14/17 15:00 23:00 07:00 Intake Total 240 ml Balance 240 ml Intake Oral 240 ml Vital Signs Date Time Temp Pulse Resp B/P (MAP) Pulse Ox O2 Delivery O2 Flow Rate FiO2 06/13/17 06:12 98.1 61 16 153/75 (101) 96 06/12/17 18:01 98.0 72 16 148/91 (110) 93 General: No acute distress Eye: PERRL, EOMI Respiratory: Non-labored respirations Cardiology: Normal rate Neurologic: Alert, Oriented, No focal defects Psychiatric: Cooperative Exam Comments alert, follows, sitting on commode, no focal weakness Objective Micro and Labs Laboratory Tests Test 06/12/17 15:07 06/12/17 16:46 Folate GREATER THAN 20.0 Erythrocyte Sedimentation Rate 8 Ammonia 11 C-Reactive Protein 0.34 Paul Rogers MD June 13, 2017 09:39
[2017-06-13] MEDS ORDERED: PILL SPLITTER OTHER PRN (11:00)
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
[2017-06-13 18:15] VITALS: BP 111/75; PULSE 79; RESP 16; TEMP 98; O2SAT 95
[2017-06-13] MEDS ORDERED: LORA0.5T PO (19:55)
[2017-06-13] MEDS ORDERED: LISI-515 PO (20:00)
[2017-06-13] MEDS ORDERED: TRAZ100T10 PO (20:00)
[2017-06-13] MEDS ORDERED: ESCI10TA PO (20:01)
[2017-06-13] MEDS: MELATONIN 5 MG TAB PO PRN (20:38)
[2017-06-13] MEDS: QUEtiapine FUMARATE 25 MG TAB PO SCH (20:52)
--- NOTE | 2017-06-13 21:03 | RADRPT ---
EXAM DATE/TIME: 06/13/2017 20:14 [facility] COMPARISON: CT BRAIN W/O CONTRAST, June 10, 2017, 13:34. INDICATIONS : CVA. MEDICAL HISTORY : Hypertension. SURGICAL HISTORY : Facelift. ENCOUNTER: Subsequent ACUITY: 4-6 days PAIN SCORE: 0/10 LOCATION: head. TECHNIQUE: Multiplanar, multisequence MRI of the brain was performed without contrast. FINDINGS: CEREBRUM: The ventricles are normal for age. No evidence of midline shift, mass lesion, hemorrhage or acute in farction. No extraaxial fluid collections are seen. The pituitary gland and suprasellar cistern are normal in configuration. WHITE MATTER: Scattered foci of bright T2 signal abnormalities are seen in the white matter with similar changes th e brainstem. POSTERIOR FOSSA: The cerebellum is intact. The 4th ventricle is midline. The cerebellopontine angle is unremarkable. The cerebellar tonsils are normal in position. DIFFUSION IMAGING: No focal areas of restricted diffusion are seen. No evidence of acute infarction. EXTRACRANIAL: The visualized portions of the orbits and paranasal sinuses are unremarkable. CONCLUSION: 1. 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 2. No acute infarction. Michel Manning MD on June 13, 2017 at 20:57 Board Certified Radiologist. This report was verified electronically.
--- NOTE | 2017-06-13 21:56 | PD.PSY.CON ---
Provisional Diagnosis Admission Date June 12, 2017 at 13:53 [place] I. Unspecified psychosis, rule out benzodiazepine abuse withdrawal induced psychosis [place] II. Deferred History of Present Illness Service Psychiatry Consult Requested By Dr. Recinos Reason for Consult Second opinion Primary Care Physician Unknown HPI The patient 76-year-old woman, domiciled with granddaughter jeanne Burrows , , unemployed, supported by senior care benefits, with psychiatric history of anxiety and depression, she denies previous psychiatric hospitalizations, denies previous suicidal attempts, medical history of arthritis presenting to the hospital after the family brought her because of Ativan withdrawal. Of note , patient has been on Ativan for 20 years, for the last few months, she has been taking Ativan 2 mg about 6-8 times a day. Her primary care physician tried to wean her off the Ativan but it was challenging. Because of increasing lethargy, family decided to help her with weaning her off from Ativan about 2 days ago. Her last usual dose of Ativan was 2 days ago, patient has been well until yesterday when she started having hallucinations, did not make any sense, nauseated, diaphoretic and anxious. Because of these symptoms, the family was alarmed and this morning, they gave her one 2 mg tablet and brought her to the hospital. Her mental status improved after getting a 2 mg Ativan but the family is concerned that she will withdrawal and she does not have any more medications. The patient's granddaughter and the patient would like to wean her off to the lowest dose possible. She is also on tramadol for chronic pain and lisinopril for hypertension. Presently, she denies any shortness of breath but she admits to being anxious. Psychiatric evaluation the patient is quietly confused, with some moments of lucidity, but mostly disorganized, disoriented. The patient reports good mood, she said that she has been missing her who several years ago, minutes later she reports that her was just here visiting her. The patient self-report to be very confused "do not believe anything I say, I do know what is going on with me". Patient thinks "I am in my apartment". She states we are in December [birth year], 2010. The patient has a prominent confusion, blocking thought, speech delay and internal preoccupation. She has been endorsing visual hallucinations, she has been seeing people inside her room, talking to noexistent people. No agitation or aggressive behavior present. As per nurse in charge a primary doctor in the ER, the patient also has been stating in different locations that she wants to , but a my evaluation she denies this. 06/13/17 - Second opinion Patient is a 76-year-old woman, domiciled granddaughter, , unemployed, with a past psychiatric history of depression and anxiety, no previous psychiatric admissions, no previous suicide attempts, or self- injurious behavior, who was brought into the hospital after experiencing altered mental status in the context of long-standing Ativan use with recent attempt to discontinue which patient started to experience hallucinations and confusion which patient was admitted for stabilization. Patient was found lying hospital bed continued to be noted to be somewhat confused stating that she had a seizure. Patient reports having been on Xanax and Librium since her 20s also history of alcohol use but reports rarely using recently. Patient states that her granddaughter had given her brownies with marijuana, also had reported drinking some ready and states that did not room for the night that she had fallen. Patient states that she recently had a decrease in the Ativan dose from 2 mg 3-4 times a day to 0.5 mg which patient reported "kept taking a lot" and having run out of her medicines recently. Patient reports feeling somewhat depressed with denying any suicide ideations, denies any perceptional services at this time. Collateral contact his Nubia Beltran [phone]. Past Family Social History Coded Allergies: No Known Allergies (Unverified , 06/10/17) Reported Medications Escitalopram (Escitalopram) 10 Mg Tab, 10 MG PO DAILY, #30 TAB 0 Refills 06/13/17 Lisinopril (Lisinopril) 20 Mg Tab, 20 MG PO DAILY, #30 TAB 0 Refills 06/13/17 Trazodone (Trazodone) 100 Mg Tablet, 100 MG PO HS for Control Depression, #30 TAB 0 Refills 06/13/17 Lorazepam (Lorazepam) 0.5 Mg Tab, 0.5 MG PO Q6H Y for ANXIETY, TAB 0 Refills 06/13/17 Escitalopram (Escitalopram) 5 Mg Tab, PO DAILY, TAB 0 Refills 06/10/17 Tramadol (Tramadol) 50 Mg Tab, PO DIRECTED Y for PAIN, TAB 0 Refills 06/10/17 Lorazepam (Ativan) 2 Mg Tab, 2 MG PO Q6H Y for ANXIETY AND/OR AGITATION, TAB 0 Refills 06/10/17 Current Medications Medications (Trade) Dose Ordered Sig/Castillo Route Start Time Stop Time Status Last Admin (Ativan) 0.5 mg Q12H PRN PO 06/12/17 12:00 (Ativan Inj) 0.5 mg Q12H PRN IM 06/12/17 12:00 (Tylenol) 650 mg Q4H PRN PO 06/12/17 12:00 (Milk Of Magnesia Liq) 30 ml DAILY PRN PO 06/12/17 12:00 (Mag-Al Plus Susp Liq) 30 ml Q6H PRN PO 06/12/17 12:00 (Habitrol 21 Mg Patch.24 Hr) 1 patch DAILY T-DERMAL 06/12/17 14:00 (Romazicon Inj) 0.2 mg Q1M PRN IV PUSH 06/12/17 12:00 (Ativan) 1 mg Q4H PRN PO 06/12/17 12:00 06/12/17 17:16 (Ativan Inj) 1 mg Q4H PRN IV PUSH 06/12/17 12:00 (Ativan) 2 mg Q2H PRN PO 06/12/17 12:00 (Ativan Inj) 2 mg Q2H PRN IV PUSH 06/12/17 12:00 (Ativan Inj) 2 mg Q1H PRN IV PUSH 06/12/17 12:00 (Ativan Inj) 2 mg Q15M PRN IV PUSH 06/12/17 12:00 (Ativan) 2 mg Q6H PRN PO 06/12/17 15:15 (Melatonin) 5 mg HS PRN PO 06/12/17 18:15 06/13/17 20:38 (Ultram) 50 mg Q8H PRN PO 06/12/17 18:15 (SEROquel) 12.5 mg BID PO 06/13/17 21:00 (Pill Splitter) 1 ea UNSCH PRN OTHER 06/13/17 11:00 Physical Exam Vital Signs Vital Signs Date Time Temp Pulse Resp B/P (MAP) Pulse Ox O2 Delivery O2 Flow Rate FiO2 06/13/17 18:15 98.0 79 16 111/75 (87) 95 I/O 06/13/17 06/13/17 06/14/17 08:00 16:00 00:00 Intake Total 300 ml 240 ml 120 ml Balance 300 ml 240 ml 120 ml Mental Status Examination Appearance: Appropriate Consciousness: Alert Orientation: Person Motor Activity: Other (Unsteady gait) Speech: Unremarkable Language: Adequate Fund of Knowledge: Inadequate Attention and Concentration: Easily Distracted Memory: Impaired Mood: Appropriate Affect: Appropriate Thought Process & Associations: Loose associations Thought Content: Bizarre thinking, Hallucinations (Denying at this time) Hallucination Type: None, Visual Delusion Type: None Suicidal Ideation: Yes (Denies today) Suicidal Plan: No Suicidal Intention: No Homicidal Ideation: No Homicidal Plan: No Homicidal Intention: No Insight: Poor Judgment: Poor Assessment & Plan Problem List: (1) Unspecified psychosis ICD Codes: F29 - Unspecified psychosis not due to a substance or known physiological condition Status: Acute Assessment & Plan I have seen and examined this patient, reviewed the documentation, discussed personally with Dr. Recinos, and I agree and concur with his assessment and plan. Consult appreciated. Attempts have been made to try to reach patient's granddaughter but did not answer. We will continue to try to communicate with her and assign her as health care surrogate for now as patient continues to have some confusion. Once patient begins to regain capacity patient will therefore sign for her own medication treatment. We will continue patient on quetiapine 12.5 mg p.o. twice daily, continue rest of medications continue recommendations as per prior medical team. Continue CIWA protocol. Discharge planning in progress. Discharge Planning Patient return back to her residence was psychiatrically stable. Michel Hobson MD June 13, 2017 21:56
[2017-06-14 06:10] VITALS: BP 138/61; PULSE 82; RESP 16; TEMP 98.1; O2SAT 96
--- NOTE | 2017-06-14 07:24 | MG ---
cc: Eh Randall MD EEG NUMBER: [id number] INDICATION: Hallucinations, anxiety, depression. DESCRIPTION: A 9-10 Hz, 60 microvolt, symmetric and quite normal-appearing posterior and diffuse rhythm is seen. No focal abnormalities are noted. No seizure activity is seen. Some bitemporal muscle artifact is noted. Photic stimulation is performed without significant posterior driving. Hyperventilation was not performed. IMPRESSION: Normal awake electroencephalogram. No evidence for focal or diffuse abnormality. Eh Randall MD DJMolly/KD , 07:09 AM , 07:23 AM
[2017-06-14 08:35] LABS: CALCIUM 8.9 MG/DL (8.5-10.1); CREATININE 0.66 MG/DL (0.50-1.00)
[2017-06-14] MEDS: NICOTINE 21 MG/24 HR PATCH T-DERMAL SCH (09:00)
[2017-06-14] MEDS: QUEtiapine FUMARATE 25 MG TAB PO SCH ×2 (09:56→20:27)
--- NOTE | 2017-06-14 12:15 | HHI.PR ---
Subjective Remarks Patient seen and examined No acute event overnight Stable and no report of any seizure activity Objective Vitals Vital Signs Date Time Temp Pulse Resp B/P (MAP) Pulse Ox O2 Delivery O2 Flow Rate FiO2 06/14/17 06:10 98.1 82 16 138/61 (86) 96 06/13/17 18:15 98.0 79 16 111/75 (87) 95 I/O 06/13/17 06/13/17 06/13/17 06/14/17 06/14/17 06/14/17 07:00 15:00 23:00 07:00 15:00 23:00 Intake Total 60 ml 480 ml 120 ml 380 ml Balance 60 ml 480 ml 120 ml 380 ml Intake Oral 60 ml 480 ml 120 ml 380 ml # Voids 5 Result Diagram: 06/14/17 0710 Imaging Last Impressions Brain MRI 06/13/17 0000 Signed Impressions: Service Date/Time: Tuesday, June 13, 2017 20:14 - CONCLUSION: 1. 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 2. No acute infarction. Michel Manning MD Objective Remarks GENERAL: NAD SKIN: Warm and dry. HEAD: Normocephalic. EYES: No scleral icterus. No injection or drainage. NECK: Supple, trachea midline. No JVD or lymphadenopathy. CARDIOVASCULAR: Regular rate and rhythm without murmurs, gallops, or rubs. RESPIRATORY: Breath sounds equal bilaterally. No accessory muscle use. GASTROINTESTINAL: Abdomen soft, non-tender, nondistended. MUSCULOSKELETAL: No cyanosis, or edema. BACK: Nontender without obvious deformity. No CVA tenderness. A/P Problem List: (1) Benzodiazepine dependence ICD Code: F13.20 - Sedative, hypnotic or anxiolytic dependence, uncomplicated (2) Suicidal behavior ICD Code: R46.89 - Other symptoms and signs involving appearance and behavior (3) Hypertension ICD Code: I10 - Essential (primary) hypertension Assessment and Plan 76-year-old female with Benzodiazepine withdrawal Suicidal ideations -Currently has CIWA and benzo PRN. -Management per psychiatry -EEG unremarkable, appreciate input from neurology Hypertension Currently normotensive on no BP med Hyponatremia-mild hyponatremia continue to monitor Hypokalemia-resolved Michel Vázquez MD June 14, 2017 12:15
[2017-06-14] MEDS: ACETAMINOPHEN 325 MG TAB PO PRN (21:43)
--- NOTE | 2017-06-14 23:10 | HHI.PYPN ---
Subjective Remarks Patient seen for follow up; chart reviewed. Discussion nursing staff reported the patient with low CIWA scores, recent MRI was negative for any abnormalities. Patient was found lying hospital bed noted calm, cooperative. Patient noted to be somewhat preservative on requesting Ativan despite continued psychoeducation on risks of long-term benzodiazepine use. Patient this time is alert and oriented to person place and partially to date (year only ). Patient reports having had difficulty sleeping last evening, at times noted to be tangential with loosening associations but states that her mood has been "fine". Review of Systems Except as stated in HPI: all other systems reviewed are Neg Mental Status Examination Appearance: Appropriate Consciousness: Alert Orientation: Person Motor Activity: Other (Unsteady gait) Speech: Unremarkable Language: Adequate Fund of Knowledge: Inadequate Attention and Concentration: Easily Distracted Memory: Impaired Mood: Anxious Affect: Anxious Thought Process & Associations: Loose associations Thought Content: Bizarre thinking Hallucination Type: None Delusion Type: None Suicidal Ideation: Yes (Denies today) Suicidal Plan: No Suicidal Intention: No Homicidal Ideation: No Homicidal Plan: No Homicidal Intention: No Insight: Poor Judgment: Poor Results Labs Labs reviewed Test 06/14/17 07:10 Blood Urea Nitrogen 7 MG/DL Creatinine 0.66 MG/DL Random Glucose 83 MG/DL Calcium Level 8.9 MG/DL Magnesium Level 2.0 MG/DL Sodium Level 131 MEQ/L Potassium Level 3.0 MEQ/L Chloride Level 93 MEQ/L Carbon Dioxide Level 30.0 MEQ/L Anion Gap 8 MEQ/L Estimat Glomerular Filtration Rate 87 ML/MIN Vitals/IOs Vital Signs Date Time Temp Pulse Resp B/P (MAP) Pulse Ox O2 Delivery O2 Flow Rate FiO2 06/14/17 06:10 98.1 82 16 138/61 (86) 96 Intake and Output 06/14/17 06/14/17 06/15/17 08:00 16:00 00:00 Intake Total 380 ml 240 ml Balance 380 ml 240 ml Assessment & Plan Problem List: (1) Unspecified psychosis ICD Codes: F29 - Unspecified psychosis not due to a substance or known physiological condition Status: Acute Assessment & Plan Patient continues to have mild confusion, tangential with loosening associations , preservative on resuming benzodiazepine. Patient was again given psychoeducation on risks of long-term benzodiazepine use. We will consider starting patient on gabapentin or buspirone if patient continues to endorse significant anxiety. Patient's CIWA scores have been low. We will repeat labs as patient noted to have mild hyponatremia and hypokalemia. Continue to monitor mood and behavior. Discharge planning in progress. Justification for Cont. Inpt. At risk of further decompensation at lower level care. Michel Hobson MD June 14, 2017 23:10
[2017-06-15 05:31] VITALS: BP 106/77; PULSE 79; RESP 16; TEMP 98; O2SAT 95
[2017-06-15] MEDS: NICOTINE 21 MG/24 HR PATCH T-DERMAL SCH (08:12)
[2017-06-15] MEDS: QUEtiapine FUMARATE 25 MG TAB PO SCH ×2 (08:12→20:53)
[2017-06-15] MEDS: ACETAMINOPHEN 325 MG TAB PO PRN ×3 (08:13→20:57)
[2017-06-15 09:07] LABS: BICARBONATE 30.4 MEQ/L (21.0-32.0); CALCIUM 9.7 MG/DL (8.5-10.1); CREATININE 0.66 MG/DL (0.50-1.00)
--- NOTE | 2017-06-15 13:11 | HHI.PYPN ---
Subjective Remarks Patient seen for follow, chart reviewed. Discussion nursing staff reported the patient continues on CIWA and scoring 2-4, patient slept well. Patient was found sitting in the room noted B, cooperative noted to be less anxious today. Patient was preservative on resuming on Ativan. Patient has been trying to reach her granddaughter via telephone but reporting having slept well, no problems eating and drinking, no physical pain at this time. Patient is noted to have some loosening associations during interview. Review of Systems Except as stated in HPI: all other systems reviewed are Neg Mental Status Examination Appearance: Appropriate Consciousness: Alert Orientation: Person Motor Activity: Other (Unsteady gait) Speech: Unremarkable Language: Adequate Fund of Knowledge: Inadequate Attention and Concentration: Easily Distracted Memory: Impaired Mood: Anxious Affect: Anxious Thought Process & Associations: Loose associations Thought Content: Bizarre thinking Hallucination Type: None Delusion Type: None Suicidal Ideation: Yes (Denies today) Suicidal Plan: No Suicidal Intention: No Homicidal Ideation: No Homicidal Plan: No Homicidal Intention: No Insight: Poor Judgment: Poor Results Labs Labs reviewed Test 06/15/17 07:54 Blood Urea Nitrogen 17 MG/DL Creatinine 0.66 MG/DL Random Glucose 81 MG/DL Calcium Level 9.7 MG/DL Sodium Level 136 MEQ/L Potassium Level 3.4 MEQ/L Chloride Level 97 MEQ/L Carbon Dioxide Level 30.4 MEQ/L Anion Gap 9 MEQ/L Estimat Glomerular Filtration Rate 87 ML/MIN Total Creatine Kinase 2769 U/L Creatine Kinase MB 24.2 NG/ML Creatine Kinase MB % 0.9 % Vitals/IOs Vital Signs Date Time Temp Pulse Resp B/P (MAP) Pulse Ox O2 Delivery O2 Flow Rate FiO2 06/15/17 05:31 98.0 79 16 106/77 (87) 95 Intake and Output 06/15/17 06/15/17 06/16/17 08:00 16:00 00:00 Intake Total 120 ml Balance 120 ml Assessment & Plan Problem List: (1) Unspecified psychosis ICD Codes: F29 - Unspecified psychosis not due to a substance or known physiological condition Status: Acute Assessment & Plan Patient at this time seems to have less confusion today, some loosening associations. Patient currently scoring low on CIWA protocol, continue to monitor for withdrawal. Repeat labs showed patient having improved electrolytes but also noted with elevated CK. Will follow recommendations as her prior medical team. We will continue current treatment. Continue to monitor mood and behavior. Discharge planning in progress. Justification for Cont. Inpt. At risk of further decompensation at lower level care. Discharge Planning Patient return back to her residence Michel Hobson MD June 15, 2017 13:11
[2017-06-15] MEDS: SODIUM CHLOR 0.9% 1000 ML INJ 1,000 ML IV SCH (14:42)
[2017-06-15] MEDS: traMADol HCL 50 MG TAB PO PRN (18:02)
[2017-06-15 18:23] VITALS: BP 125/61; PULSE 92; RESP 18; TEMP 98.1; O2SAT 95
[2017-06-16] MEDS: SODIUM CHLOR 0.9% 1000 ML INJ 1,000 ML IV SCH ×3 (00:56→13:20)
[2017-06-16] MEDS: MELATONIN 5 MG TAB PO PRN ×2 (01:47→20:56)
[2017-06-16] MEDS: traMADol HCL 50 MG TAB PO PRN (01:47)
[2017-06-16] MEDS: ACETAMINOPHEN 325 MG TAB PO PRN ×4 (04:31→22:00)
[2017-06-16 06:25] VITALS: BP 126/83; PULSE 88; RESP 16; TEMP 98; O2SAT 93
[2017-06-16] MEDS: NICOTINE 21 MG/24 HR PATCH T-DERMAL SCH (08:45)
[2017-06-16] MEDS: QUEtiapine FUMARATE 25 MG TAB PO SCH ×2 (08:45→20:15)
--- NOTE | 2017-06-16 11:04 | HHI.PR ---
Subjective Remarks Follow up for benzo withdrawal, suicidal ideations. Patient is doing well. Ambulating in the room. No fever, chills. Objective Vitals Vital Signs Date Time Temp Pulse Resp B/P (MAP) Pulse Ox O2 Delivery O2 Flow Rate FiO2 06/16/17 06:25 98.0 88 16 126/83 (97) 93 06/15/17 18:23 98.1 92 18 125/61 (82) 95 06/15/17 13:30 14 I/O 06/15/17 06/15/17 06/15/17 06/16/17 06/16/17 06/16/17 07:00 15:00 23:00 07:00 15:00 23:00 Intake Total 120 ml 480 ml 2160 ml 600 ml 480 ml Balance 120 ml 480 ml 2160 ml 600 ml 480 ml Intake Oral 480 ml 2160 ml 600 ml 480 ml Oral Supplement 120 ml # Voids 1 3 Result Diagram: 06/15/17 0754 Imaging Last Impressions Brain MRI 06/13/17 0000 Signed Impressions: Service Date/Time: Tuesday, June 13, 2017 20:14 - CONCLUSION: 1. 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 2. No acute infarction. Michel Manning MD Objective Remarks GENERAL: Alert, NAD. SKIN: Warm and dry. HEAD: Normocephalic. EYES: No scleral icterus. No injection or drainage. NECK: Supple, trachea midline. No JVD or lymphadenopathy. CARDIOVASCULAR: Regular rate and rhythm without murmurs, gallops, or rubs. RESPIRATORY: Breath sounds equal bilaterally. No accessory muscle use. GASTROINTESTINAL: Abdomen soft, non-tender, nondistended. MUSCULOSKELETAL: No cyanosis, or edema. BACK: Nontender without obvious deformity. No CVA tenderness. Procedures None. A/P Problem List: (1) Benzodiazepine dependence ICD Code: F13.20 - Sedative, hypnotic or anxiolytic dependence, uncomplicated (2) Suicidal behavior ICD Code: R46.89 - Other symptoms and signs involving appearance and behavior (3) Hypertension ICD Code: I10 - Essential (primary) hypertension Assessment and Plan Ms. Montesinos is a 76 year old female with a history of benzo dependence who was brought to the hospital due to benzo withdrawal and suicidal ideations. Patient was treated in the acute care setting first and then admitted to psychiatry unit on 06/12/2017. Benzodiazepine withdrawal Suicidal ideations -Currently has CIWA and benzo PRN. -Further treatment per psychiatry regarding suicidal ideations Hyponatremia Hypokalemia Hypomagnesemia -Electrolytes within reasonable range. Na 136, K 3.4, Mg 2.0. -Replace K+ with PO KCL 10meq BID for 2 days. Rhabdomyolysis - total CK 2769. Continue IV fluid. Total CK pending this AM. Full code. Ambulation. Isauro Mock DO June 16, 2017 11:04 am
--- NOTE | 2017-06-16 16:09 | HHI.PYPN ---
Subjective Remarks Patient was seen and case discussed with nursing. Patient is alert and oriented 2. There is some mild confusion and thought process is tangential. CIWA is 2. Vital signs stable. No nausea or vomiting Mental Status Examination Appearance: Appropriate Consciousness: Alert Orientation: Person Motor Activity: Other (Unsteady gait) Speech: Unremarkable Language: Adequate Fund of Knowledge: Inadequate Attention and Concentration: Easily Distracted Memory: Impaired Mood: Anxious Affect: Anxious Thought Process & Associations: Tangential Thought Content: Bizarre thinking Hallucination Type: None Delusion Type: None Suicidal Ideation: No Suicidal Plan: No Suicidal Intention: No Homicidal Ideation: No Homicidal Plan: No Homicidal Intention: No Insight: Poor Judgment: Poor Results Labs Test 06/16/17 11:38 Total Creatine Kinase 2159 U/L Creatine Kinase MB 15.0 NG/ML Creatine Kinase MB % 0.7 % Vitals/IOs Vital Signs Date Time Temp Pulse Resp B/P (MAP) Pulse Ox O2 Delivery O2 Flow Rate FiO2 06/16/17 06:25 98.0 88 16 126/83 (97) 93 Intake and Output 06/16/17 06/16/17 06/17/17 08:00 16:00 00:00 Intake Total 1080 ml 480 ml Balance 1080 ml 480 ml Assessment & Plan Problem List: (1) Unspecified psychosis ICD Codes: F29 - Unspecified psychosis not due to a substance or known physiological condition Status: Acute Assessment & Plan Continue current treatment plan Justification for Cont. Inpt. Patient would decompensate in a less restrictive setting Ham Layton DO June 16, 2017 16:09
[2017-06-16 18:00] VITALS: BP 118/68; PULSE 83; RESP 16; TEMP 99; O2SAT 97
[2017-06-16] MEDS: POTASSIUM CHLORIDE 10 MEQ CONTROLLED RELEASE TAB PO SCH (20:15)
[2017-06-17] MEDS: ACETAMINOPHEN 325 MG TAB PO PRN ×4 (00:37→20:18)
[2017-06-17] MEDS: LORazepam 1 MG TAB PO PRN ×2 (00:55→20:16)
[2017-06-17] MEDS: traMADol HCL 50 MG TAB PO PRN ×2 (00:56→20:17)
[2017-06-17] MEDS: SODIUM CHLOR 0.9% 1000 ML INJ 1,000 ML IV SCH ×4 (01:01→22:38)
[2017-06-17 06:00] VITALS: BP 156/84; PULSE 88; RESP 16; TEMP 96.8; O2SAT 93
[2017-06-17] MEDS: QUEtiapine FUMARATE 25 MG TAB PO SCH ×2 (08:25→20:18)
[2017-06-17] MEDS: NICOTINE 21 MG/24 HR PATCH T-DERMAL SCH ×2 (08:25→20:37)
[2017-06-17] MEDS: POTASSIUM CHLORIDE 10 MEQ CONTROLLED RELEASE TAB PO SCH ×2 (08:25→20:16)
--- NOTE | 2017-06-17 13:56 | HHI.PR ---
Subjective Remarks Follow up for benzo withdrawal, suicidal ideations, rhabdomyolysis, electrolyte disturbances. The patient has no medical complaints. Discussed with RN, no acute events overnight. Vital signs reviewed, BP slightly elevated this morning , otherwise has been well controlled. Objective Vitals Vital Signs Date Time Temp Pulse Resp B/P (MAP) Pulse Ox O2 Delivery O2 Flow Rate FiO2 06/17/17 06:00 96.8 88 16 156/84 (108) 93 06/16/17 18:00 99.0 83 16 118/68 (85) 97 I/O 06/16/17 06/16/17 06/16/17 06/17/17 06/17/17 06/17/17 07:00 15:00 23:00 07:00 15:00 23:00 Intake Total 600 ml 1920 ml 1660 ml 240 ml 480 ml Balance 600 ml 1920 ml 1660 ml 240 ml 480 ml Intake Oral 600 ml 1920 ml 960 ml 240 ml 480 ml IV Total 700 ml # Voids 3 1 3 Result Diagram: 06/15/17 0754 Imaging Last Impressions Brain MRI 06/13/17 0000 Signed Impressions: Service Date/Time: Tuesday, June 13, 2017 20:14 - CONCLUSION: 1. 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 2. No acute infarction. Michel Manning MD Objective Remarks GENERAL: Well-nourished, well-developed thin elderly female patient in [facility]. SKIN: Warm and dry. No rash. HEENT: Normocephalic. Atraumatic.Pupils equal and round. Mucous membranes pink and moist. CARDIOVASCULAR: Regular rate and rhythm. No murmur appreciated. RESPIRATORY: No accessory muscle use. Clear to auscultation. Breath sounds equal bilaterally. GASTROINTESTINAL: Abdomen soft, non-tender, nondistended. Normoactive bowel sounds x4. MUSCULOSKELETAL: No obvious deformities. Extremities without clubbing, cyanosis , or edema. NEUROLOGICAL: Awake and alert. No obvious cranial nerve deficits. Motor grossly within normal limits. Normal speech. Procedures None. Medications and IVs Current Medications Medications (Trade) Dose Ordered Sig/Castillo Route Start Time Stop Time Status Last Admin (Ativan) 0.5 mg Q12H PRN PO 06/12/17 12:00 (Ativan Inj) 0.5 mg Q12H PRN IM 06/12/17 12:00 (Tylenol) 650 mg Q4H PRN PO 06/12/17 12:00 06/17/17 08:26 (Milk Of Magnesia Liq) 30 ml DAILY PRN PO 06/12/17 12:00 (Mag-Al Plus Susp Liq) 30 ml Q6H PRN PO 06/12/17 12:00 (Habitrol 21 Mg Patch.24 Hr) 1 patch DAILY T-DERMAL 06/12/17 14:00 06/17/17 08:25 (Romazicon Inj) 0.2 mg Q1M PRN IV PUSH 06/12/17 12:00 (Ativan) 1 mg Q4H PRN PO 06/12/17 12:00 06/17/17 00:55 (Ativan Inj) 1 mg Q4H PRN IV PUSH 06/12/17 12:00 (Ativan) 2 mg Q2H PRN PO 06/12/17 12:00 (Ativan Inj) 2 mg Q2H PRN IV PUSH 06/12/17 12:00 (Ativan Inj) 2 mg Q1H PRN IV PUSH 06/12/17 12:00 (Ativan Inj) 2 mg Q15M PRN IV PUSH 06/12/17 12:00 (Ativan) 2 mg Q6H PRN PO 06/12/17 15:15 (Melatonin) 5 mg HS PRN PO 06/12/17 18:15 06/16/17 20:56 (Ultram) 50 mg Q8H PRN PO 06/12/17 18:15 06/17/17 00:56 (SEROquel) 12.5 mg BID PO 06/13/17 21:00 06/17/17 08:25 (Pill Splitter) 1 ea UNSCH PRN OTHER 06/13/17 11:00 Sodium Chloride 1,000 ml @ 84 mls/hr [id number] IV 06/15/17 13:30 06/17/17 10:03 (KCl) 10 meq Q12HR PO 06/16/17 21:00 06/18/17 20:59 06/17/17 08:25 A/P Problem List: (1) Benzodiazepine dependence ICD Code: F13.20 - Sedative, hypnotic or anxiolytic dependence, uncomplicated (2) Suicidal behavior ICD Code: R46.89 - Other symptoms and signs involving appearance and behavior (3) Hypertension ICD Code: I10 - Essential (primary) hypertension Assessment and Plan Ms. Montesinos is a 76 year old female with a history of benzo dependence who was brought to the hospital due to benzo withdrawal and suicidal ideations. Patient was treated in the acute care setting first and then admitted to psychiatry unit on 06/12/2017. Benzodiazepine withdrawal Suicidal ideations -Currently has CIWA and benzo PRN. -Further treatment per psychiatry regarding suicidal ideations Hyponatremia Hypokalemia Hypomagnesemia -Electrolytes within reasonable range. Na 136, K 3.4, Mg 2.0. -Replace K+ with PO KCL 10meq BID for 2 days. -repeat BMP tomorrow Rhabdomyolysis - total CK 2769 --> 2159 -Continue IV fluid. -Repeat CPK tomorrow Full code. Ambulation. Wilda Paulino PA-C June 17, 2017 1:56 pm
--- NOTE | 2017-06-17 15:30 | HHI.PYPN ---
Subjective Remarks Patient was seen with granddaughter and case discussed with nursing. Granddaughters advocating the patient get her pain medications that Bailey should speak up when she wants them. Patient has a delusion that somebody stole her identity and there is another Bailey here. Thoughts remained scattered and affect is quite anxious. Denies suicidal or homicidal ideation intent or plan Mental Status Examination Appearance: Appropriate Consciousness: Alert Orientation: Person Motor Activity: Other (Unsteady gait) Speech: Unremarkable Language: Adequate Fund of Knowledge: Inadequate Attention and Concentration: Easily Distracted Memory: Impaired Mood: Anxious Affect: Anxious Thought Process & Associations: Disorganized, Tangential Thought Content: Bizarre thinking Hallucination Type: None Delusion Type: None Suicidal Ideation: No Suicidal Plan: No Suicidal Intention: No Homicidal Ideation: No Homicidal Plan: No Homicidal Intention: No Insight: Poor Judgment: Poor Results Vitals/IOs Vital Signs Date Time Temp Pulse Resp B/P (MAP) Pulse Ox O2 Delivery O2 Flow Rate FiO2 06/17/17 06:00 96.8 88 16 156/84 (108) 93 Intake and Output 06/17/17 06/17/17 06/18/17 08:00 16:00 00:00 Intake Total 720 ml 480 ml Balance 720 ml 480 ml Assessment & Plan Problem List: (1) Unspecified psychosis ICD Codes: F29 - Unspecified psychosis not due to a substance or known physiological condition Status: Acute Assessment & Plan Continue current treatment plan Justification for Cont. Inpt. Patient would decompensate in a less restrictive setting Ham Layton DO June 17, 2017 15:30
[2017-06-17 18:12] VITALS: BP 174/82; PULSE 87; RESP 18; TEMP 98.4; O2SAT 99
[2017-06-18] MEDS: ACETAMINOPHEN 325 MG TAB PO PRN (04:20)
[2017-06-18 06:13] VITALS: BP 161/96; PULSE 89; RESP 17; TEMP 98.7
--- NOTE | 2017-06-18 07:35 | HHI.PR ---
Review/Management Diagnosis/Plan: (1) Altered mental status ICD Codes: R41.82 - Altered mental status, unspecified Status: Acute Plan: primary psych d/o electrolytes low- sodium, potassium, phos, chloride electrolyte replacement nh3, esr nml recs eeg- nml mri brain- white matter changes, no acute lesion d/c planning from neuro and outpatient f/u further outpatient cognitive evaluation no driving (2) Hypertension ICD Codes: I10 - Essential (primary) hypertension Plan: continue Lisinopril (3) Depression ICD Codes: F32.9 - Major depressive disorder, single episode, unspecified Status: Chronic Plan: continue to work closely with psychiatry Subjective Subjective Comments No acute events reported No headache No chest pain No dyspnea Active Medications Current Medications Medications (Trade) Dose Ordered Sig/Castillo Route Start Time Stop Time Status Last Admin (Ativan) 0.5 mg Q12H PRN PO 06/12/17 12:00 (Ativan Inj) 0.5 mg Q12H PRN IM 06/12/17 12:00 (Tylenol) 650 mg Q4H PRN PO 06/12/17 12:00 06/18/17 04:20 (Milk Of Magnesia Liq) 30 ml DAILY PRN PO 06/12/17 12:00 (Mag-Al Plus Susp Liq) 30 ml Q6H PRN PO 06/12/17 12:00 (Habitrol 21 Mg Patch.24 Hr) 1 patch DAILY T-DERMAL 06/12/17 14:00 06/17/17 20:37 (Romazicon Inj) 0.2 mg Q1M PRN IV PUSH 06/12/17 12:00 (Ativan) 1 mg Q4H PRN PO 06/12/17 12:00 06/17/17 20:16 (Ativan Inj) 1 mg Q4H PRN IV PUSH 06/12/17 12:00 (Ativan) 2 mg Q2H PRN PO 06/12/17 12:00 (Ativan Inj) 2 mg Q2H PRN IV PUSH 06/12/17 12:00 (Ativan Inj) 2 mg Q1H PRN IV PUSH 06/12/17 12:00 (Ativan Inj) 2 mg Q15M PRN IV PUSH 06/12/17 12:00 (Ativan) 2 mg Q6H PRN PO 06/12/17 15:15 (Melatonin) 5 mg HS PRN PO 06/12/17 18:15 06/16/17 20:56 (Ultram) 50 mg Q8H PRN PO 06/12/17 18:15 06/17/17 20:17 (SEROquel) 12.5 mg BID PO 06/13/17 21:00 06/17/17 20:18 (Pill Splitter) 1 ea UNSCH PRN OTHER 06/13/17 11:00 Sodium Chloride 1,000 ml @ 84 mls/hr [id number] IV 06/15/17 13:30 06/17/17 22:38 (KCl) 10 meq Q12HR PO 06/16/17 21:00 06/18/17 20:59 06/17/17 20:16 Allergies Allergies Coded Allergies No Known Allergies (Unverified06/10/17) Review of Systems Constitutional: Negative except HPI Eye: Negative Except HPI ENMT: Negative except HPI Respiratory: Negative except HPI Cardiovascular: Negative except HPI Gastrointestinal: Negative except HPI Nikolas/Lymph: Negative except HPI Musculoskeletal: Negative except HPI All other ROS: ROS reviewed as documented in chart Exam I&O / VS Vital Signs Date Time Temp Pulse Resp B/P (MAP) Pulse Ox O2 Delivery O2 Flow Rate FiO2 06/18/17 06:13 98.7 89 17 161/96 (117) 06/17/17 18:12 98.4 87 18 174/82 (112) 99 General: No acute distress Eye: PERRL, EOMI Respiratory: Non-labored respirations Cardiology: Normal rate Neurologic: Alert, Oriented, No focal defects Psychiatric: Cooperative Exam Comments alert, ox 2-3, tangential, calm, follows, articulate, good eye contact, no hallucinations, eomi, ou 3-2mm, face sym, no focal weakness Paul Rogers MD June 18, 2017 07:35
[2017-06-18] MEDS: LORazepam 1 MG TAB PO PRN (08:46)
[2017-06-18] MEDS: POTASSIUM CHLORIDE 10 MEQ CONTROLLED RELEASE TAB PO SCH (08:46)
[2017-06-18] MEDS: QUEtiapine FUMARATE 25 MG TAB PO SCH (08:46)
[2017-06-18] MEDS: traMADol HCL 50 MG TAB PO PRN (08:48)
[2017-06-18 09:18] LABS: BICARBONATE 28.4 MEQ/L (21.0-32.0); CALCIUM 9.3 MG/DL (8.5-10.1); CREATININE 0.59 MG/DL (0.50-1.00)
--- NOTE | 2017-06-18 10:24 | HHI.PYPN ---
Subjective Remarks Patient seen for follow, chart reviewed. Discussion nursing staff reported the patient noted to be less confused, compliant medications, tangential at times. Patient was sitting hospital bed noted become cooperative. Patient states that she had a good weekend, reports her mood as also being "good", reports sleeping well, having been feeling very positive with her continued outpatient treatment. Patient states she was visited by her grandmother which went well. Patient today is alert and oriented 3, denying perceptual services or delusions at this time. Patient aware that she is currently continued for further medical treatment due to recent abnormality recent lab which she is currently receiving IV fluids and having had blood draw done this morning. Review of Systems Except as stated in HPI: all other systems reviewed are Neg Mental Status Examination Appearance: Appropriate Consciousness: Alert Orientation: Person, Place, Date/Time Speech: Unremarkable Language: Adequate Fund of Knowledge: Inadequate Attention and Concentration: Easily Distracted Memory: Unremarkable Mood: Appropriate Affect: Appropriate, Anxious Thought Process & Associations: Intact, Goal directed, Tangential (at times) Thought Content: Appropriate Hallucination Type: None Delusion Type: None Suicidal Ideation: No Suicidal Plan: No Suicidal Intention: No Homicidal Ideation: No Homicidal Plan: No Homicidal Intention: No Insight: Fair Judgment: Impulsive Results Labs labs reviewed Test 06/18/17 08:16 Blood Urea Nitrogen 8 MG/DL Creatinine 0.59 MG/DL Random Glucose 86 MG/DL Calcium Level 9.3 MG/DL Sodium Level 138 MEQ/L Potassium Level 3.6 MEQ/L Chloride Level 100 MEQ/L Carbon Dioxide Level 28.4 MEQ/L Anion Gap 10 MEQ/L Estimat Glomerular Filtration Rate 99 ML/MIN Total Creatine Kinase 1329 U/L Creatine Kinase MB 10.7 NG/ML Creatine Kinase MB % 0.8 % Vitals/IOs Vital Signs Date Time Temp Pulse Resp B/P (MAP) Pulse Ox O2 Delivery O2 Flow Rate FiO2 06/18/17 06:13 98.7 89 17 161/96 (117) 06/17/17 18:12 99 Intake and Output 06/18/17 06/18/17 06/19/17 08:00 16:00 00:00 Intake Total 1080 ml Balance 1080 ml Assessment & Plan Problem List: (1) Unspecified psychosis ICD Codes: F29 - Unspecified psychosis not due to a substance or known physiological condition Status: Acute Assessment & Plan Patient this time noted with improvement in mood, no longer confused, although tangential at times but adequate responses during interview. Patient continues with medical workup due to recent lab abnormalities. Patient pending medical clearance and recommendations. Patient will likely for discharge once medically cleared. Patient also seen with counselor today a discharge plan currently in process. Justification for Cont. Inpt. At risk for further decompensation if at lower level of care. Michel Hobsno MD June 18, 2017 10:24
--- NOTE | 2017-06-18 10:40 | PD.TTN ---
Patient Problems 1. Discharge planning 2. Medication compliance 3. Knowledge deficit 4. Lack of coping skills Progress Toward Goals Provider Present: Dr. Idalia Hobson Provider Input: Dr. Hobson had his treatment team meeting to discuss patient's discharge, medication, and treatment. Patient is doing better. Patient is psychiatrically cleared, waiting on medical clearance for discharge. Nurse(s) Input: Patient's nurse reports patient is medication compliant, cooperative, anxious to go home. Psychiatric Counselors Present: Annie Bentley [facility] Psych Therapist Input: Patient presented cooperative, seclusive, speech was clear, organized with rambling, good eye contact. Patient denies suicidal and homicidal ideation. Patient did not present internally stimulated. Group Spec/RT/OT/TURCIOS Present: Louis Flaherty OT Group Spec/RT/OT/TURCIOS Input: Patient does not attend groups. Annie Bentley [facility] June 18, 2017 10:40
[2017-06-18] MEDS: SODIUM CHLOR 0.9% 1000 ML INJ 1,000 ML IV SCH (13:00)
[2017-06-18] MEDS ORDERED: SERO25TA PO (13:12)
[2017-06-18] MEDS ORDERED: MELA5 PO (13:12)
--- NOTE | 2017-06-18 13:13 | HHI.DS ---
Psychiatry Discharge Summary Inpatient Psychiatric care?: Yes Advance Directive: No Reason Not Provided: patient declined Mental Health AdvanceDirective: No Health Care Proxy: Yes Admission Admission Date June 12, 2017 at 13:53 Admission Diagnosis: (1) Unspecified psychosis ICD Code: F29 - Unspecified psychosis not due to a substance or known physiological condition Brief History The patient 76-year-old woman, domiciled with granddaughter jeanne Burrows , , unemployed, supported by long term benefits, with psychiatric history of anxiety and depression, she denies previous psychiatric hospitalizations, denies previous suicidal attempts, medical history of arthritis presenting to the hospital after the family brought her because of Ativan withdrawal. Of note , patient has been on Ativan for 20 years, for the last few months, she has been taking Ativan 2 mg about 6-8 times a day. Her primary care physician tried to wean her off the Ativan but it was challenging. Because of increasing lethargy, family decided to help her with weaning her off from Ativan about 2 days ago. Her last usual dose of Ativan was 2 days ago, patient has been well until yesterday when she started having hallucinations, did not make any sense, nauseated, diaphoretic and anxious. Because of these symptoms, the family was alarmed and this morning, they gave her one 2 mg tablet and brought her to the hospital. Her mental status improved after getting a 2 mg Ativan but the family is concerned that she will withdrawal and she does not have any more medications. The patient's granddaughter and the patient would like to wean her off to the lowest dose possible. She is also on tramadol for chronic pain and lisinopril for hypertension. Presently, she denies any shortness of breath but she admits to being anxious. Psychiatric evaluation the patient is quietly confused, with some moments of lucidity, but mostly disorganized, disoriented. The patient reports good mood, she said that she has been missing her who several years ago, minutes later she reports that her was just here visiting her. The patient self-report to be very confused "do not believe anything I say, I do know what is going on with me". Patient thinks "I am in my apartment". She states we are in December 13, 2009. The patient has a prominent confusion, blocking thought, speech delay and internal preoccupation. She has been endorsing visual hallucinations, she has been seeing people inside her room, talking to noexistent people. No agitation or aggressive behavior present. As per nurse in charge a primary doctor in the ER, the patient also has been stating in different locations that she wants to , but a my evaluation she denies this. 06/13/17 - Second opinion Patient is a 76-year-old woman, domiciled granddaughter, , unemployed, with a past psychiatric history of depression and anxiety, no previous psychiatric admissions, no previous suicide attempts, or self- injurious behavior, who was brought into the hospital after experiencing altered mental status in the context of long-standing Ativan use with recent attempt to discontinue which patient started to experience hallucinations and confusion which patient was admitted for stabilization. Patient was found lying hospital bed continued to be noted to be somewhat confused stating that she had a seizure. Patient reports having been on Xanax and Librium since her 20s also history of alcohol use but reports rarely using recently. Patient states that her granddaughter had given her brownies with marijuana, also had reported drinking some ready and states that did not room for the night that she had fallen. Patient states that she recently had a decrease in the Ativan dose from 2 mg 3-4 times a day to 0.5 mg which patient reported "kept taking a lot" and having run out of her medicines recently. Patient reports feeling somewhat depressed with denying any suicide ideations, denies any perceptional services at this time. Collateral contact his Nubia Beltran [phone]. Tobacco Use In Past 30 Days: No Tobacco Past 30 Days Alcohol Use: 2-4 Times Per Month Hospital Course Patient is a 76-year-old woman, domiciled granddaughter, , unemployed, with a past psychiatric history of depression and anxiety, no previous psychiatric admissions, no previous suicide attempts, or self- injurious behavior, who was brought into the hospital after experiencing altered mental status in the context of long-standing Ativan use with recent attempt to discontinue which patient started to experience hallucinations and confusion which patient was admitted for stabilization. Patient was started on quetiapine 12.5mg p.o. twice daily which she tolerated well and kept on CIWA protocol and was noted to have low scores on the scale for withdrawal. Patient initially was noted to have confusion which slowly began to resolve. Patient was noted to no longer have disorganized behavior and no longer noted to be having any perceptual disturbances. Patient has been calm and cooperative with staff and compliant with treatment. Patient was adherent to medication regimen and recommendations as per primary medical team was noted with participation with staff. Patient during admission was found to have electrolyte abnormalities which patient was managed by medical team and cleared prior to discharge. Upon discharge patient stated feeling good, stated feeling okay with returning back home to granddaughter today; noted to be calm and cooperative with staff. She agreed to continuing medical recommendations, treatment and cooperate for continuity of care. Patient; denies SI, HI, AVH or delusions. Supportive psychotherapy provided. Suicide and violence risk assessment on day of discharge both suggest lower imminent risk, and the patient 's level of function is adequate for planned level of outpatient care but at this time continues to require assistance with placement as he is currently homeless and has no social nor financial support. Patient will be discharged to surgical service for planned surgery. Results Blood Pressure 161 / 96 Vital Signs Date Time Temp Pulse Resp B/P (MAP) Pulse Ox O2 Delivery O2 Flow Rate FiO2 06/18/17 06:13 98.7 89 17 161/96 (117) 06/17/17 18:12 99 Laboratory Tests Test 06/16/17 11:38 06/18/17 08:16 Total Creatine Kinase 2159 U/L (26-192) 1329 U/L (26-192) Creatine Kinase MB 15.0 NG/ML (0.5-3.6) 10.7 NG/ML (0.5-3.6) Summary of Procedures none Imaging Last Impressions Brain MRI 06/13/17 0000 Signed Impressions: Service Date/Time: Tuesday, June 13, 2017 20:14 - CONCLUSION: 1. 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 2. No acute infarction. Michel Manning MD Pending results at discharge: No Medications # of Antipsychotic meds at D/C: 1 Approp Antipsych med options 1 - Minimum of three failed multiple trials of monotherapy. 2 - Documented plan to taper to monotherapy due to previous use of multiple meds OR cross-taper in progress at D/C. 3 - Documentation of augmentation of Clozapine. 4 - Justification other than those listed in allowable values 1-3, document here : Discharge Discharge Date: June 18, 2017 Discharge Diagnosis: (1) Unspecified psychosis ICD Code: F29 - Unspecified psychosis not due to a substance or known physiological condition Status: Acute Pt Condition on Discharge: Stable Discharge Disposition: Discharge Home Discharge Instructions Diet Instructions: Heart Healthy Diet Activities you can perform: Weight Bearing as [place] Discharge Time > 30 minutes Mental Status Examination Appearance: Appropriate Consciousness: Alert Orientation: Person, Place, Date/Time Speech: Unremarkable Language: Adequate Fund of Knowledge: Inadequate Attention and Concentration: Adequate Memory: Unremarkable Mood: Appropriate Affect: Appropriate Thought Process & Associations: Intact, Goal directed, Linear Thought Content: Appropriate Hallucination Type: None Delusion Type: None Suicidal Ideation: No Suicidal Plan: No Suicidal Intention: No Homicidal Ideation: No Homicidal Plan: No Homicidal Intention: No Insight: Fair Judgment: Impulsive Discharge/Advance Care Plan Health Problems: (1) Unspecified psychosis Goals to promote your health * To prevent worsening of your condition and complications * To maintain your health at the optimal level Directions to meet your goals Take your medications as prescribed Follow your dietary instruction Follow activity as directed Keep your appointments as scheduled Take your immunizations and boosters as scheduled If your symptoms worsen call your PCP, if no PCP go to Urgent Care Center or Emergency Room For 04/09 questions related to your inpatient stay or results of tests pending at discharge, please contact Dr. Michel Hobson at Smoking is Dangerous to Your Health. Avoid second hand smoking Michel Hobson MD June 18, 2017 13:13
--- NOTE | 2017-06-18 15:30 | HHI.PR ---
Subjective Remarks RN reports patient being discharged today if medically cleared. The patient is stable. She has no complaints. CPK trending down, encouraged to continue oral hydration after discharge. Objective Vitals Vital Signs Date Time Temp Pulse Resp B/P (MAP) Pulse Ox O2 Delivery O2 Flow Rate FiO2 06/18/17 06:13 98.7 89 17 161/96 (117) 06/17/17 18:12 98.4 87 18 174/82 (112) 99 I/O 06/17/17 06/17/17 06/17/17 06/18/17 06/18/17 06/18/17 07:00 15:00 23:00 07:00 15:00 23:00 Intake Total 240 ml 1960 ml 2620 ml 600 ml 720 ml Balance 240 ml 1960 ml 2620 ml 600 ml 720 ml Intake Oral 240 ml 960 ml 1920 ml 600 ml 720 ml IV Total 1000 ml 700 ml # Voids 3 5 2 Result Diagram: 06/18/17 0816 Imaging Last Impressions Brain MRI 06/13/17 0000 Signed Impressions: Service Date/Time: Tuesday, June 13, 2017 20:14 - CONCLUSION: 1. 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 2. No acute infarction. Michel Manning MD Objective Remarks GENERAL: Well-nourished, well-developed thin elderly female patient in [facility]. SKIN: Warm and dry. No rash. HEENT: Normocephalic. Atraumatic.Pupils equal and round. Mucous membranes pink and moist. CARDIOVASCULAR: Regular rate and rhythm. No murmur appreciated. RESPIRATORY: No accessory muscle use. Clear to auscultation. Breath sounds equal bilaterally. GASTROINTESTINAL: Abdomen soft, non-tender, nondistended. Normoactive bowel sounds x4. MUSCULOSKELETAL: No obvious deformities. Extremities without clubbing, cyanosis , or edema. NEUROLOGICAL: Awake and alert. No obvious cranial nerve deficits. Motor grossly within normal limits. Normal speech. Procedures None. Medications and IVs Current Medications Medications (Trade) Dose Ordered Sig/Castillo Route Start Time Stop Time Status Last Admin (Ativan) 0.5 mg Q12H PRN PO 06/12/17 12:00 (Ativan Inj) 0.5 mg Q12H PRN IM 06/12/17 12:00 (Tylenol) 650 mg Q4H PRN PO 06/12/17 12:00 06/18/17 04:20 (Milk Of Magnesia Liq) 30 ml DAILY PRN PO 06/12/17 12:00 (Mag-Al Plus Susp Liq) 30 ml Q6H PRN PO 06/12/17 12:00 (Habitrol 21 Mg Patch.24 Hr) 1 patch DAILY T-DERMAL 06/12/17 14:00 06/17/17 20:37 (Romazicon Inj) 0.2 mg Q1M PRN IV PUSH 06/12/17 12:00 (Ativan) 1 mg Q4H PRN PO 06/12/17 12:00 06/18/17 08:46 (Ativan Inj) 1 mg Q4H PRN IV PUSH 06/12/17 12:00 (Ativan) 2 mg Q2H PRN PO 06/12/17 12:00 (Ativan Inj) 2 mg Q2H PRN IV PUSH 06/12/17 12:00 (Ativan Inj) 2 mg Q1H PRN IV PUSH 06/12/17 12:00 (Ativan Inj) 2 mg Q15M PRN IV PUSH 06/12/17 12:00 (Ativan) 2 mg Q6H PRN PO 06/12/17 15:15 (Melatonin) 5 mg HS PRN PO 06/12/17 18:15 06/16/17 20:56 (Ultram) 50 mg Q8H PRN PO 06/12/17 18:15 06/18/17 08:48 (SEROquel) 12.5 mg BID PO 06/13/17 21:00 06/18/17 08:46 (Pill Splitter) 1 ea UNSCH PRN OTHER 06/13/17 11:00 Sodium Chloride 1,000 ml @ 84 mls/hr [id number] IV 06/15/17 13:30 06/18/17 13:00 (KCl) 10 meq Q12HR PO 06/16/17 21:00 06/18/17 20:59 06/18/17 08:46 A/P Problem List: (1) Benzodiazepine dependence ICD Code: F13.20 - Sedative, hypnotic or anxiolytic dependence, uncomplicated (2) Suicidal behavior ICD Code: R46.89 - Other symptoms and signs involving appearance and behavior (3) Hypertension ICD Code: I10 - Essential (primary) hypertension Assessment and Plan Ms. Montesinos is a 76 year old female with a history of benzo dependence who was brought to the hospital due to benzo withdrawal and suicidal ideations. Patient was treated in the acute care setting first and then admitted to psychiatry unit on 06/12/2017. Benzodiazepine withdrawal Suicidal ideations -Currently has CIWA and benzo PRN. -Further treatment per psychiatry regarding suicidal ideations Hyponatremia Hypokalemia Hypomagnesemia -Electrolytes within reasonable range. Na 136, K 3.4, Mg 2.0. -Replace K+ with PO KCL 10meq BID for 2 days. -repeat BMP stable Rhabdomyolysis - total CK 2769 --> 2159 -Continue IV fluid. -Repeat CPK 1300. Encouraged to continue oral hydration after discharge. Full code. Ambulation. Discharge Planning The patient is medically clear for discharge. Wilda Paulino PA-C June 18, 2017 15:30
== END 2017-06-18 15:30 | disposition home or self-care (01) | DRG 885 ==
LOC: H4EA 13:53 → H250 06-14 15:30 → H4EA 06-15 11:00
PROVIDERS: ADMIT Student in an Organized Health Care Education/Training Program; ATTEND Student in an Organized Health Care Education/Training Program
DX: F29 Unspecified psychosis not due to a substance or known physiological condition (principal); E87.1 Hypo-osmolality and hyponatremia; M62.82 Rhabdomyolysis; F13.10 Sedative, hypnotic or anxiolytic abuse, uncomplicated; I10 Essential (primary) hypertension; G89.29 Other chronic pain; M19.90 Unspecified osteoarthritis, unspecified site; E87.6 Hypokalemia; R26.81 Unsteadiness on feet
CPT/HCPCS: 70551; 80048; 82140; 82550; 82552; 82746; 83735; 85652; 86140; 95819; J7030